=== PATIENT | female | born 1985 | race Caucasian/White ===

== ENCOUNTER → 2017-09-27 | Outpatient (CLI) | payer BC ==
[~2017-09-27] MED LIST: ACHD5005 PO; FRS325T PO; IBP600T1 PO; MULT-608 PO; PNV1TABL67 PO; TRI SPRINTEC PO
== END ==
LOC: LAB 22:41
PROVIDERS: ATTEND Obstetrics & Gynecology
DX: E28.2 Polycystic ovarian syndrome (principal)
CPT/HCPCS: 36415; 84144

== ENCOUNTER → 2017-10-25 | Outpatient (CLI) | payer BC | LOC: LAB 09:14 | PROVIDERS: ATTEND Obstetrics & Gynecology | DX: E28.2 Polycystic ovarian syndrome (principal) | CPT/HCPCS: 36415; 84144 ==

== ENCOUNTER → 2018-02-23 | Outpatient (CLI) | payer BC ==
--- NOTE | 2018-02-23 13:12 | Diagnostic Imaging Report ---
INDICATION: survey. TECHNIQUE: Multiple Real-time grayscale images were obtained over the gravid uterus. COMPARISON: None. FINDINGS: There is a single live fetus in variable presentation. The heart rate was recorded at 135 BPM. The placenta is anterior. The amniotic fluid volume is normal. The cervical length is 4.6 cm. The survey demonstrates the kidneys, bladder, and stomach to be unremarkable. The brain is unremarkable. There is a 3 vessel cord; however, the cord insertion was not well visualized. In addition, a four-chamber heart view is not well visualized. The spine is unremarkable. MEASUREMENTS: Biometrical measurements are as follows: Biparietal 4.86 cm, age 20 weeks 5 days. Head circumference 17.98 cm, age 20 weeks 3 days. Abdominal circumference 15.93 cm, age 21 weeks 1 days. Femur length 3.48 cm, age 21 weeks 0 days. Sonographic estimate age: 20 weeks 6 days. Sonographic estimated date of delivery: 07/07/2018. Estimated Weight: 388 gm (+/- 57 gm). LMP percentile: 87%. heart rate: 135 beats per minute. number: 1 of 1. IMPRESSION: Single live IUP at 20 weeks 6 days gestational age with an estimated date of confinement sonographically of 07/07/2018. No complicating features are seen. The survey is unremarkable although the cord insertion and four-chamber heart view were not well visualized on today's study and followup could be performed. Dictated by: Dictated on workstation # [id number]
== END ==
LOC: RAD 10:37
PROVIDERS: ATTEND Obstetrics & Gynecology
DX: Z36.89 Encounter for other specified antenatal screening (principal); Z3A.20 20 weeks gestation of pregnancy
CPT/HCPCS: 76805

== ENCOUNTER 2018-06-17 12:43 | Outpatient (CLI) | payer BC ==
[~2018-06-17] VITALS: Ht 162.6 cm; Wt 125.6 kg
[2018-06-17 12:50] VITALS: BP 144/95
[2018-06-17 13:10] VITALS: BP 144/100
[2018-06-17 13:55] LABS: BASOPHILS % (AUTO) 0 % (0-10); EOSINOPHILS # (AUTO) 0.1 10^3/uL (0.0-0.3); EOSINOPHILS % (AUTO) 1 % (0-10); HEMATOCRIT 34 % (35-52); HEMOGLOBIN 11.6 G/DL (11.5-16.0); LYMPHOCYTES # (AUTO) 1.8 X 10^3 (1.0-4.0); LYMPHOCYTES % (AUTO) 16 % (12-44); MEAN CORPUSCULAR HEMOGLOBIN 29 PG (25-34); MEAN CORPUSCULAR HGB CONC 34 G/DL (32-36); MEAN CORPUSCULAR VOLUME 86 FL (80-99); MEAN PLATELET VOLUME 10.8 FL (7.4-10.4); MONOCYTES # (AUTO) 0.8 X 10^3 (0.0-1.0); MONOCYTES % (AUTO) 7 % (0-12); NEUTROPHILS # (AUTO) 8.8 X 10^3 (1.8-7.8); NEUTROPHILS % (AUTO) 77 % (42-75); PLATELET COUNT 269 10^3/uL (130-400); RED BLOOD COUNT 3.99 10^6/uL (4.35-5.85); RED CELL DISTRIBUTION WIDTH 15.2 % (10.0-14.5); WHITE BLOOD COUNT 11.5 10^3/uL (4.3-11.0)
[2018-06-17 14:00] VITALS: BP 136/87
[2018-06-17 14:10] LABS: ALANINE AMINOTRANSFERASE 15 U/L (0-55); ALBUMIN 3.3 GM/DL (3.2-4.5); ALKALINE PHOSPHATASE 127 U/L (40-136); BILIRUBIN,TOTAL 0.3 MG/DL (0.1-1.0); BUN/CREATININE RATIO 13; CALCIUM 9.6 MG/DL (8.5-10.1); CARBON DIOXIDE 19 MMOL/L (21-32); CHLORIDE 107 MMOL/L (98-107); CREATININE SERUM 0.53 MG/DL (0.60-1.30); GFR ESTIMATED > 60; GLUCOSE 110 MG/DL (70-105); POTASSIUM 3.8 MMOL/L (3.6-5.0); SODIUM 136 MMOL/L (135-145); TOTAL PROTEIN 6.3 GM/DL (6.4-8.2); URIC ACID 4.6 MG/DL (2.6-7.2)
[2018-06-17] MEDS ORDERED: LEVO75TA PO (14:40)
[2018-06-17] MEDS ORDERED: METF-399 PO (14:40)
== END 2018-06-17 14:50 | disposition home or self-care (01) ==
LOC: LDRP 12:43 → WSo 12:43
PROVIDERS: ATTEND Obstetrics & Gynecology
DX: O47.03 False labor before 37 completed weeks of gestation, third trimester (principal); Z3A.36 36 weeks gestation of pregnancy
CPT/HCPCS: 36415; 80053; 82570; 83615; 84156; 84550; 85025; 99213

== ENCOUNTER 2018-06-22 20:20 | Inpatient (IN) | payer BC ==
[~2018-06-22] VITALS: Ht 162.6 cm; Wt 127.5 kg
[2018-06-22] VITALS (8 sets, daily range): BP systolic 124–146; BP diastolic 73–89
[~2018-06-22 20:20] MED LIST changes: +LEVO75TA PO; +METF-399 PO
[2018-06-22] MEDS ORDERED: LACTATED RINGERS 1,000 ML IV SCH (20:44)
[2018-06-22] MEDS ORDERED: MISOPROSTOL 100 MCG (CYTOTEC) TAB PO ONE (20:45)
[2018-06-22] MEDS ORDERED: TERBUTALINE INJ 1 MG/ML (BRETHINE) AMP SC PRN (20:45)
[2018-06-22] MEDS ORDERED: MINERAL OIL CONCENTRATE 99.9% 15 ML UDC TOP PRN (20:45)
[2018-06-22] MEDS ORDERED: MISOPROSTOL 100 MCG (CYTOTEC) TAB ONE (20:59)
[2018-06-22] MEDS ORDERED: D5 LR IV SOLUTION 1,000 ML IV ONE (20:59)
[2018-06-22] MEDS: D5 LR IV SOLUTION 1,000 ML IV SCH (21:18)
[2018-06-22 21:37] LABS: BASOPHILS % (AUTO) 0 % (0-10); EOSINOPHILS # (AUTO) 0.1 10^3/uL (0.0-0.3); EOSINOPHILS % (AUTO) 1 % (0-10); HEMATOCRIT 33 % (35-52); HEMOGLOBIN 11.1 G/DL (11.5-16.0); LYMPHOCYTES # (AUTO) 2.4 X 10^3 (1.0-4.0); LYMPHOCYTES % (AUTO) 20 % (12-44); MEAN CORPUSCULAR HEMOGLOBIN 29 PG (25-34); MEAN CORPUSCULAR HGB CONC 34 G/DL (32-36); MEAN CORPUSCULAR VOLUME 86 FL (80-99); MEAN PLATELET VOLUME 10.7 FL (7.4-10.4); MONOCYTES % (AUTO) 9 % (0-12); NEUTROPHILS # (AUTO) 8.3 X 10^3 (1.8-7.8); NEUTROPHILS % (AUTO) 70 % (42-75); PLATELET COUNT 283 10^3/uL (130-400); RED BLOOD COUNT 3.81 10^6/uL (4.35-5.85); RED CELL DISTRIBUTION WIDTH 15.1 % (10.0-14.5); WHITE BLOOD COUNT 11.9 10^3/uL (4.3-11.0)
[2018-06-22 21:37] LABS: BILIRUBIN,URINE NEGATIVE (NEGATIVE); CLARITY,URINE CLEAR; COLOR,URINE YELLOW; GLUCOSE, URINE (UA) 2+ (NEGATIVE); KETONES,URINE NEGATIVE (NEGATIVE); LEUKOCYTE ESTERASE ,URINE NEGATIVE (NEGATIVE); NITRITE,URINE NEGATIVE (NEGATIVE); PH,URINE 6 (5-9); PROTEIN,URINE 1+ (NEGATIVE); UROBILINOGEN,URINE NORMAL (NORMAL)
[2018-06-22 21:43] LABS: BACTERIA,URINE FEW /HPF; RBC,URINE 0-5 /HPF; SQUAMOUS EPITHELIAL CELL,UR >50 /HPF
[2018-06-22] MEDS ORDERED: CATHETER FLUSH 10 ML SYR IV SCH (22:00)
[2018-06-23] VITALS (71 sets, daily range): BP systolic 117–162; BP diastolic 64–98
[2018-06-23] MEDS: MISOPROSTOL 100 MCG (CYTOTEC) TAB PO SCH ×3 (00:58→10:34)
[2018-06-23] MEDS ORDERED: ZOLPIDEM 5 MG (AMBIEN) TAB PO ONE (01:00)
[2018-06-23] MEDS ORDERED: ZOLPIDEM 5 MG (AMBIEN) TAB ONE (01:00)
[2018-06-23] MEDS: D5 LR IV SOLUTION 1,000 ML IV SCH ×2 (06:29→14:54)
[2018-06-23] MEDS ORDERED: ONDANSETRON 4 MG/2 ML (SDV) Z0FRAN ONE (09:52)
[2018-06-23] MEDS ORDERED: BUTORPHANOL INJ 2 MG/ML (STADOL) VIAL IV NR (11:15)
[2018-06-23] MEDS ORDERED: PROMETHAZINE INJ 25 MG/ML (PHENERGAN) AMP IVP NR (11:15)
[2018-06-23] MEDS ORDERED: LIDOCAINE PF 2% 5 ML (XYLOCAINE) VIAL ONE (11:42)
[2018-06-23] MEDS ORDERED: BUPIVACAINE 0.25% 30 ML (SENSORCAINE) VIAL ONE (11:42)
[2018-06-23] MEDS ORDERED: fentaNYL INJECTION 100 MCG/2 ML AMP ONE (11:42)
[2018-06-23] MEDS ORDERED: SUFENTA 0.6MCG/ML BUPIVA 0.125 100 ML ONE (11:42)
[2018-06-23] MEDS ORDERED: LACTATED RINGERS 1,000 ML IV ONE (12:32)
[2018-06-23] MEDS ORDERED: NALOXONE 0.4 MG/ML 1 ML (NARCAN) VIAL IV PRN (12:45)
[2018-06-23] MEDS ORDERED: ONDANSETRON 4 MG/2 ML (SDV) Z0FRAN IV PRN (12:45)
[2018-06-23] MEDS ORDERED: diphenhydrAMINE 50 MG/ML INJ (BENADRYL) IV PRN (12:45)
[2018-06-23] MEDS ORDERED: CATHETER FLUSH 10 ML SYR IV PRN (12:45)
[2018-06-23] MEDS ORDERED: OXYTOCIN/NORMAL SALINE 500 ML IV SCH ×2 (14:50→20:45)
[2018-06-23] MEDS: EPIDURAL (SUFENTA 0.6MCG/ML BUPIVA 0.125%) 100 ML BAG EPI SCH ×2 (14:54→19:29)
[2018-06-23] MEDS ORDERED: LIDOCAINE 1% INJ 20 ML 20 ML VIAL ONE (19:55)
[2018-06-23] MEDS ORDERED: MISOPROSTOL 200 MCG (CYTOTEC) TABLET ONE (20:28)
[2018-06-23] MEDS ORDERED: MEASLES,MUMPS,RUBELLA 1 EA INJ SQ ONE (20:45)
[2018-06-23] MEDS ORDERED: DIBUCAINE (NUPERCAINAL) 1% OINT 30 GM TOP PRN (20:45)
[2018-06-23] MEDS ORDERED: TETANUS,DIPTH,PERTUSS P/F (BOOSTRIX) 0.5 ML VIAL IM ONE (20:45)
[2018-06-23] MEDS ORDERED: ACETAMINOPHEN 500 MG TAB (TYLENOL) PO PRN (20:45)
[2018-06-23] MEDS ORDERED: WITCH HAZEL(TUCKS) 40 EA JAR TOP PRN (20:45)
[2018-06-23] MEDS ORDERED: BENZOCAINE/MENTHOL (DERMOPLAST) 56 ML CAN TP PRN (20:45)
--- NOTE | 2018-06-23 20:50 | OB Labor & Delivery Record ---
Vag Delivery Note Vag Delivery Note Date of Delivery: 06/23/18 Preoperative Diagnosis: Elisha Cr is a (32 /Para 2/1 ,Gestational Age 37 2/7 weeks, gestational hypertension, induction of labor Postoperative Diagnosis: Same Surgeon: FLORENTIN CLINTON Anesthesia: epidural Delivery Type: vaginal delivery Findings: Viable male infant, apgars 8/8, weight 7#8oz Lacerations: Intact placenta with 3 vessel cord. No body cord or shoulder dystocia. there was a nuchal cord that was delivered through. Cytotec 800 mcg placed for hemorrhage prophylaxis Estimated Blood Loss: 150 ml Complications: None Condition: Stable Description of Procedure: The patient is a 32 /Para 2/1 ,Gestational Age 37 2/7 weeks, gestational hypertension, induction of labor. She was admitted and informed consent was obtained. Her labor course was remarkable for misoprostol x 4 doses , AROM and pitocin. She progressed to complete dilatation and began to push. She was then set up for delivery. The 's head was delivered atraumatically in the BELIA position. The shoulders and remainder of the 's body were then delivered without difficulty. Upon delivery, the head was held below the level of the perineum and the mouth and nares were bulb suctioned. The cord was doubly clamped and cut and the was handed off to the pediatric staff. An intact placenta with 3-vessel cord delivered via Girish and there was found to be minimal bleeding.~ Vigorous fundal massage was performed and the fundus was found to be firm. IV oxytocin was given. Examination of the vagina and perineum revealed a 1st laceration repaired in the usual fashion with 3-0 vicryl suture. Following the repair, sponge, instrument and needle counts were correct. Mom and baby were both in stable condition in the labor suite. Vitals - Labs Vital Signs - I&O Vital Signs Date Time Temp Pulse Resp B/P (MAP) Pulse Ox O2 Delivery O2 Flow Rate FiO2 06/23/18 19:00 87 133/67 (89) Room Air 06/23/18 18:45 92 125/68 (87) Room Air 06/23/18 18:30 82 127/70 (89) Room Air 06/23/18 18:15 100 122/77 (92) Room Air 06/23/18 18:00 99.5 92 122/72 (89) Room Air 06/23/18 17:45 90 18 123/81 (95) Room Air 06/23/18 17:30 95 132/91 (105) Room Air 06/23/18 17:15 101 133/84 (100) Room Air 06/23/18 17:00 90 138/87 (104) Room Air 06/23/18 16:45 93 127/86 (100) Room Air 06/23/18 16:30 89 120/77 (91) Room Air 06/23/18 16:15 98.5 84 18 132/72 (92) Room Air 06/23/18 16:00 96 142/70 (94) Room Air 06/23/18 15:45 96 124/83 (97) Room Air 06/23/18 15:30 85 122/81 (95) Room Air 06/23/18 15:15 86 117/77 (90) Room Air 06/23/18 15:00 97.7 82 18 122/78 (93) Room Air 06/23/18 14:45 110 125/92 (103) Room Air 06/23/18 14:30 87 134/78 (96) 99 Room Air 06/23/18 14:15 85 127/74 (91) 100 Room Air 06/23/18 14:00 86 130/73 (92) 100 Room Air 06/23/18 13:45 82 18 138/74 (95) 99 Room Air 06/23/18 13:30 97.4 82 134/81 (98) 100 Room Air 06/23/18 13:15 86 144/76 (98) 100 Room Air 06/23/18 13:00 86 140/76 (97) 99 Room Air 06/23/18 12:55 78 129/73 (91) 99 Room Air 06/23/18 12:50 82 145/80 (101) 99 Room Air 06/23/18 12:45 111 129/79 (96) 97 Room Air 06/23/18 12:40 84 18 127/74 (91) 97 Room Air 06/23/18 12:35 92 131/75 (93) 96 Room Air 06/23/18 12:32 88 131/76 (94) 96 Room Air 06/23/18 12:30 90 129/76 (93) 95 Room Air 06/23/18 12:29 88 141/77 (98) 96 Room Air 06/23/18 12:26 88 127/74 (91) 96 Room Air 06/23/18 12:23 89 136/76 (96) 97 Room Air 06/23/18 12:20 86 135/80 (98) 97 Room Air 06/23/18 12:15 98.0 95 18 148/83 (104) 99 Room Air 06/23/18 12:00 103 143/93 (110) 06/23/18 11:00 96 136/73 (94) 06/23/18 10:00 100 122/79 (93) 06/23/18 09:00 82 139/68 (91) 06/23/18 08:00 97.0 92 18 125/89 (101) 06/23/18 07:15 82 18 139/86 (103) 06/23/18 06:50 89 20 145/86 (105) 06/23/18 06:20 78 18 149/98 (115) 06/23/18 05:50 76 18 128/88 (101) 06/23/18 05:20 85 124/84 (97) 06/23/18 04:50 86 18 132/79 (96) 06/23/18 04:20 86 18 121/69 (86) 06/23/18 04:00 85 18 122/72 (89) 06/23/18 03:50 85 18 122/72 (89) 06/23/18 03:20 82 18 135/64 (87) 06/23/18 02:50 84 18 122/65 (84) 06/23/18 02:20 81 18 137/77 (97) 06/23/18 01:50 97.4 88 20 132/72 (92) 06/23/18 01:20 93 20 137/82 (100) 06/23/18 00:50 104 20 134/84 (101) 06/23/18 00:20 100 20 139/95 (110) 06/22/18 23:50 103 20 127/74 (91) 06/22/18 23:20 94 18 132/79 (96) 06/22/18 22:50 93 18 138/89 (105) 06/22/18 22:20 96 18 146/78 (100) 06/22/18 21:50 94 18 146/86 (106) 06/22/18 21:20 100 18 124/83 (97) 06/22/18 20:50 100 18 125/80 (95) I & O 06/23/18 07:00 Intake Total 70 ml Balance 70 ml Labs Laboratory Tests 06/22/18 21:00: White Blood Count 11.9H, Red Blood Count 3.81L, Hemoglobin 11.1L, Hematocrit 33L , Mean Corpuscular Volume 86, Mean Corpuscular Hemoglobin 29, Mean Corpuscular Hemoglobin Concent 34, Red Cell Distribution Width 15.1H, Platelet Count 283, Mean Platelet Volume 10.7H, Neutrophils (%) (Auto) 70, Lymphocytes (%) (Auto) 20 , Monocytes (%) (Auto) 9, Eosinophils (%) (Auto) 1, Basophils (%) (Auto) 0, Neutrophils # (Auto) 8.3H, Lymphocytes # (Auto) 2.4, Monocytes # (Auto) 1.0, Eosinophils # (Auto) 0.1, Basophils # (Auto) 0.0 Microbiology 06/22/18 Urine Culture - Preliminary, Resulted Culture In Progress FLORENTIN CLINTON DO Jun 23, 2018 20:50
[2018-06-23] MEDS ORDERED: MUPIROCIN 2% OINT 22 GM (BACTROBAN) TUBE TOP SCH (21:30)
[2018-06-23] MEDS: IBUPROFEN 600 MG (MOTRIN) TAB PO SCH (21:41)
[2018-06-23] MEDS ORDERED: CATHETER FLUSH 10 ML SYR IV SCH (22:00)
[2018-06-23] MEDS ORDERED: BUTORPHANOL INJ 2 MG/ML (STADOL) VIAL ONE (22:13)
[2018-06-23] MEDS ORDERED: BUTORPHANOL INJ 2 MG/ML (STADOL) VIAL IV ONE (22:15)
[2018-06-23] MEDS ORDERED: morphine INJ 10 MG/ML 1ML (SYR OR VIAL) ONE (22:37)
[2018-06-23] MEDS ORDERED: morphine INJ 10 MG/ML 1ML (SYR OR VIAL) IVP ONE (22:45)
[2018-06-23 23:55] LABS: HEMOGLOBIN 12.4 G/DL (11.5-16.0)
[2018-06-24] MEDS ORDERED: MISOPROSTOL 200 MCG (CYTOTEC) TABLET PR ONE
[2018-06-24] MEDS ORDERED: oxyCODONE/APAP 5/325MG (PERCOCET 5) TABLET ONE (01:09)
[2018-06-24 01:20] VITALS: BP 137/81
[2018-06-24 05:00] VITALS: BP 127/86
[2018-06-24] MEDS: IBUPROFEN 600 MG (MOTRIN) TAB PO SCH ×3 (05:31→16:50)
[2018-06-24 06:39] LABS: BASOPHILS % (AUTO) 0 % (0-10); EOSINOPHILS % (AUTO) 0 % (0-10); HEMATOCRIT 32 % (35-52); HEMOGLOBIN 10.7 G/DL (11.5-16.0); LYMPHOCYTES # (AUTO) 1.6 X 10^3 (1.0-4.0); LYMPHOCYTES % (AUTO) 8 % (12-44); MEAN CORPUSCULAR HEMOGLOBIN 29 PG (25-34); MEAN CORPUSCULAR HGB CONC 34 G/DL (32-36); MEAN CORPUSCULAR VOLUME 87 FL (80-99); MEAN PLATELET VOLUME 10.7 FL (7.4-10.4); MONOCYTES # (AUTO) 1.5 X 10^3 (0.0-1.0); MONOCYTES % (AUTO) 8 % (0-12); NEUTROPHILS # (AUTO) 16.3 X 10^3 (1.8-7.8); NEUTROPHILS % (AUTO) 84 % (42-75); PLATELET COUNT 258 10^3/uL (130-400); RED BLOOD COUNT 3.63 10^6/uL (4.35-5.85); RED CELL DISTRIBUTION WIDTH 15.3 % (10.0-14.5); WHITE BLOOD COUNT 19.4 10^3/uL (4.3-11.0)
[2018-06-24 09:20] VITALS: BP 128/72
[2018-06-24] MEDS: PRENATAL VITAMIN 1 EA TAB PO SCH (09:20)
[2018-06-24] MEDS: DOCUSATE SODIUM 100 MG (COLACE) CAP PO SCH ×2 (09:20→22:26)
[2018-06-24] MEDS: FERROUS SULF 325 MG (IRON) TAB PO SCH (09:20)
--- NOTE | 2018-06-24 10:44 | Anesthesia-Regional Post-Op ---
Regional Patient Condition Mental Status: Alert, Oriented x3 Circulation: Same as Pre-Op Headache: Absent Sensation: Full Recovery Motor Block: Absent Post Op Complications Complications None Follow Up Care/Instructions Patient Instructions None needed. Anesthesia/Patient Condition Patient is doing well, no complaints, stable vital signs, no apparent adverse anesthesia problems. No complications reported per nursing. VICKI LIZAMA CRNA Jun 24, 2018 10:44
[2018-06-24 14:32] LABS: BASOPHILS % (AUTO) 0 % (0-10); EOSINOPHILS # (AUTO) 0.1 10^3/uL (0.0-0.3); EOSINOPHILS % (AUTO) 0 % (0-10); HEMATOCRIT 29 % (35-52); HEMOGLOBIN 9.7 G/DL (11.5-16.0); LYMPHOCYTES # (AUTO) 2.1 X 10^3 (1.0-4.0); LYMPHOCYTES % (AUTO) 12 % (12-44); MEAN CORPUSCULAR HEMOGLOBIN 29 PG (25-34); MEAN CORPUSCULAR HGB CONC 33 G/DL (32-36); MEAN CORPUSCULAR VOLUME 88 FL (80-99); MEAN PLATELET VOLUME 10.5 FL (7.4-10.4); MONOCYTES # (AUTO) 1.2 X 10^3 (0.0-1.0); MONOCYTES % (AUTO) 7 % (0-12); NEUTROPHILS # (AUTO) 14.2 X 10^3 (1.8-7.8); NEUTROPHILS % (AUTO) 81 % (42-75); PLATELET COUNT 290 10^3/uL (130-400); RED BLOOD COUNT 3.33 10^6/uL (4.35-5.85); RED CELL DISTRIBUTION WIDTH 15.3 % (10.0-14.5); WHITE BLOOD COUNT 17.6 10^3/uL (4.3-11.0)
[2018-06-24] MEDS ORDERED: LORazepam 0.5 MG (ATIVAN) TABLET PO ONE (14:45)
--- NOTE | 2018-06-24 14:49 | Postpartum Progress Note ---
Note Note seen and examined while in the shower at 0840 Day # 1 s/p . Has previous history of post hemorrhage. She was given misoprostol prophylactically due to this and has not had excessive bleeding. However, she had severe pain in the vagina starting last night. This was not improved with pain medications, Motrin, Ice packs. She now has obvious vaginal wall hematoma. And this is causing severe pain. States she was unable to void after delivery but had straight cath this morning and had 750 ml out. Since this has been able to void but only while in the shower. I examined her while she was standing in the shower and she has bruising and swelling of the left labia consistent with a hematoma. This is very tender but appears stable at this point. Her hemoglobin dropped appropriately after delivery and hematoma seems stable 1430 patient was examined after lunch. She is lying in bed and pain is getting worse. She is only able to void in the shower. VAgina is examined and hematoma has extended from the pubic bone in the left vagina along the left vaginal wall to the ischiorectal fossa on the left. CT of the pelvis is ordered. 1615 The hematoma is 75s06m6 cm and there does not appear to be active bleeding. Plan was made to proceed with I&D in the morning as she ate lunch at 1300. She is currently a little more comfortable with pain medication and Ativan. 1800 - the pain is increasing. She is unable to move comfortably. Has had ice packs on the vulva all day without improvement. Plan to proceed with I&D tonight at 2100 as she ate lunch. Will plan I&D of the left vaginal wall hematoma. Subjective: bottle feeding and pumping. Objective: Vital Signs 06/24/18 14:56 Temp 97.9 Pulse 91 Resp 20 B/P (MAP) 122/84 (97) Pulse Ox 99 O2 Delivery Room Air Laboratory Tests Test 06/23/18 23:47 06/24/18 06:19 06/24/18 14:25 Range/Units Hemoglobin 12.4 10.7 L 9.7 L 11.5-16.0 G/DL Hematocrit 37 32 L 29 L 35-52 % White Blood Count 19.4 H 17.6 H 4.3-11.0 10^3/uL Red Blood Count 3.63 L 3.33 L 4.35-5.85 10^6/uL Mean Corpuscular Volume 87 88 80-99 FL Mean Corpuscular Hemoglobin 29 29 25-34 PG Mean Corpuscular Hemoglobin Concent 34 33 32-36 G/DL Red Cell Distribution Width 15.3 H 15.3 H 10.0-14.5 % Platelet Count 258 290 130-400 10^3/uL Mean Platelet Volume 10.7 H 10.5 H 7.4-10.4 FL Neutrophils (%) (Auto) 84 H 81 H 42-75 % Lymphocytes (%) (Auto) 8 L 12 12-44 % Monocytes (%) (Auto) 8 7 0-12 % Eosinophils (%) (Auto) 0 0 0-10 % Basophils (%) (Auto) 0 0 0-10 % Neutrophils # (Auto) 16.3 H 14.2 H 1.8-7.8 X 10^3 Lymphocytes # (Auto) 1.6 2.1 1.0-4.0 X 10^3 Monocytes # (Auto) 1.5 H 1.2 H 0.0-1.0 X 10^3 Eosinophils # (Auto) 0.0 0.1 0.0-0.3 10^3/uL Basophils # (Auto) 0.0 0.0 0.0-0.1 10^3/uL Physical Exam: General - Alert and oriented, no apparent distress Abdomen - Soft, appropriately tender to palpation, non-distended, fundus firm at umbilicus Extremities - no edema, negative Ade's bilaterally Assessment: 1. post- day # 1, status post spontaneous vaginal delivery. 2. Gestational hypertension 3. vaginal wall hematoma. 4. Acute blood loss anemia due to #3. Plan: Routine care. Encourage breast feeding. Encourage ambulation. Ferrous sulfate supplementation. Plan I&D as above. Risks include bleeding, infection, injury to bowel, bladder and ureter. Will T& C x 2 units and give prophylactic antibiotics. NPO with IV restarted. Consents signed. Vitals - Labs Vital Signs - I&O Vital Signs Date Time Temp Pulse Resp B/P (MAP) Pulse Ox O2 Delivery O2 Flow Rate FiO2 06/24/18 09:20 97.0 100 18 128/72 (90) 98 Room Air 06/24/18 05:00 97.4 79 18 127/86 (100) 06/24/18 01:20 96.8 81 137/81 (99) Room Air 06/23/18 22:55 97.8 93 134/69 (90) Room Air 06/23/18 21:34 98 146/67 (93) Room Air 06/23/18 21:20 100.4 89 145/70 (95) Room Air 06/23/18 21:05 93 161/83 (109) Room Air 06/23/18 20:50 98.9 98 155/86 (109) Room Air 06/23/18 20:35 95 152/77 (102) Room Air 06/23/18 20:21 115 149/84 (105) Room Air 06/23/18 20:05 105 155/82 (106) Room Air 06/23/18 20:00 96 142/94 (110) Room Air 06/23/18 19:55 99.0 107 133/82 (99) Room Air 06/23/18 19:45 100 162/93 (116) Room Air 06/23/18 19:30 116 140/87 (104) Room Air 06/23/18 19:15 97 124/79 (94) Room Air 06/23/18 19:00 87 133/67 (89) Room Air 06/23/18 18:45 92 125/68 (87) Room Air 06/23/18 18:30 82 127/70 (89) Room Air 06/23/18 18:15 100 122/77 (92) Room Air 06/23/18 18:00 99.5 92 122/72 (89) Room Air 06/23/18 17:45 90 18 123/81 (95) Room Air 06/23/18 17:30 95 132/91 (105) Room Air 06/23/18 17:15 101 133/84 (100) Room Air 06/23/18 17:00 90 138/87 (104) Room Air 06/23/18 16:45 93 127/86 (100) Room Air 06/23/18 16:30 89 120/77 (91) Room Air 06/23/18 16:15 98.5 84 18 132/72 (92) Room Air 06/23/18 16:00 96 142/70 (94) Room Air 06/23/18 15:45 96 124/83 (97) Room Air 06/23/18 15:30 85 122/81 (95) Room Air 06/23/18 15:15 86 117/77 (90) Room Air 06/23/18 15:00 97.7 82 18 122/78 (93) Room Air 06/23/18 14:45 110 125/92 (103) Room Air I & O 06/24/18 07:00 Intake Total 3350 ml Output Total 700 ml Balance 2650 ml Labs Laboratory Tests 06/23/18 23:47: Hemoglobin 12.4, Hematocrit 37 06/24/18 06:19: Hemoglobin 10.7L, Hematocrit 32L, White Blood Count 19.4H, Red Blood Count 3.63L , Mean Corpuscular Volume 87, Mean Corpuscular Hemoglobin 29, Mean Corpuscular Hemoglobin Concent 34, Red Cell Distribution Width 15.3H, Platelet Count 258, Mean Platelet Volume 10.7H, Neutrophils (%) (Auto) 84H, Lymphocytes (%) (Auto) 8L, Monocytes (%) (Auto) 8, Eosinophils (%) (Auto) 0, Basophils (%) (Auto) 0, Neutrophils # (Auto) 16.3H, Lymphocytes # (Auto) 1.6, Monocytes # (Auto) 1.5H, Eosinophils # (Auto) 0.0, Basophils # (Auto) 0.0 06/24/18 14:25: Hemoglobin 9.7L, Hematocrit 29L, White Blood Count 17.6H, Red Blood Count 3.33L , Mean Corpuscular Volume 88, Mean Corpuscular Hemoglobin 29, Mean Corpuscular Hemoglobin Concent 33, Red Cell Distribution Width 15.3H, Platelet Count 290, Mean Platelet Volume 10.5H, Neutrophils (%) (Auto) 81H, Lymphocytes (%) (Auto) 12, Monocytes (%) (Auto) 7, Eosinophils (%) (Auto) 0, Basophils (%) (Auto) 0, Neutrophils # (Auto) 14.2H, Lymphocytes # (Auto) 2.1, Monocytes # (Auto) 1.2H, Eosinophils # (Auto) 0.1, Basophils # (Auto) 0.0 Microbiology 06/22/18 Urine Culture - Final, Complete See Report FLORENTIN CLINTON DO Jun 24, 2018 14:49
[2018-06-24 14:56] VITALS: BP 122/84
[2018-06-24] MEDS: oxyCODONE/APAP 5/325MG (PERCOCET 5) TABLET PO PRN (14:56)
[2018-06-24] MEDS ORDERED: IOHEXOL 350 MG/ML 100 ML (OMNIPAQUE 350) VIAL IV ONE (15:00)
[2018-06-24] MEDS ORDERED: NS 250 ML (IVPB) BAG IV ONE (15:00)
[2018-06-24] MEDS ORDERED: RECEIVED CONTRAST (Hold Metformin) IV SCH (15:00)
[2018-06-24] MEDS ORDERED: LORazepam 0.5 MG (ATIVAN) TABLET ONE (15:05)
--- NOTE | 2018-06-24 16:05 | Diagnostic Imaging Report ---
PROCEDURE: CT pelvis with contrast. TECHNIQUE: Oral and intravenous contrast were administered with pelvic CT performed. INDICATION: Status post vaginal delivery yesterday with severe pelvic pain and possible developing pelvic hematoma. FINDINGS: The uterus is post gravid. There is some high density within the endometrial canal consistent with blood products. There appears to be some high density in the vaginal canal consistent with blood products. There is a hematoma primarily located along the left vaginal wall and left ischiorectal fossa measuring 9.2 cm AP x 6.7 cm transverse x 11.0 cm cephalocaudal. No active extravasation of contrast is seen to suggest active bleeding at this time. There is a small amount of free fluid adjacent to the uterus. Bladder is unremarkable. Bowel loops are unremarkable. IMPRESSION: Pelvic hematoma along the left aspect of the vagina and left ischiorectal fossa, without evidence of active extravasation. There are blood products within the uterus and vaginal canal as well. Results were discussed with Dr. Anderson prior to this dictation. Dictated by: Dictated on workstation # [id number]
[2018-06-24] MEDS ORDERED: BUTORPHANOL INJ 2 MG/ML (STADOL) VIAL IV PRN (17:45)
[2018-06-24] MEDS ORDERED: metroNIDAZOLE 500MG/100ML IVPB 100 ML ONE (18:51)
[2018-06-24] MEDS ORDERED: ceFAZolin 1,000 MG/10 ML (ANCEF) VIAL ONE (19:37)
[2018-06-24] MEDS ORDERED: NS (IVPB) 50 ML ONE (19:37)
[2018-06-24] MEDS ORDERED: MIDAZOLAM 2 MG/2 ML (VERSED) VIAL ONE (19:46)
[2018-06-24] MEDS ORDERED: fentaNYL INJECTION 100 MCG/2 ML AMP ONE ×2 (19:46→21:23)
[2018-06-24] MEDS ORDERED: SUCCINYLCHOLINE INJ 100 MG/5 ML SYR ONE (20:04)
[2018-06-24] MEDS ORDERED: proPOfol 200 MG/20 ML (DIPRIVAN) VIAL IV ONE ×2 (20:04→21:52)
[2018-06-24] MEDS ORDERED: PROPOFOL INJECTION 50 ML IV ONE ×2 (20:04→21:29)
[2018-06-24] MEDS ORDERED: DEXAMETHASONE 10 MG/ML (DECADRON) 1 ML VIAL ONE (20:04)
[2018-06-24] MEDS ORDERED: LIDOCAINE PF 2% 5 ML (XYLOCAINE) VIAL ONE (20:04)
[2018-06-24] MEDS ORDERED: ONDANSETRON 4 MG/2 ML (SDV) Z0FRAN ONE ×2 (20:04→21:30)
[2018-06-24] MEDS ORDERED: FAMOTIDINE 20MG/2ML IV (PEPCID) ONE (20:29)
[2018-06-24] MEDS ORDERED: BUPIVACAINE 0.5% 30 ML (SENSORCAINE) VIAL ONE (20:36)
[2018-06-24] MEDS ORDERED: LORazepam 0.5 MG (ATIVAN) TABLET PO NR (21:00)
[2018-06-24] MEDS ORDERED: morphine INJ 10 MG/ML 1ML (SYR OR VIAL) ONE (21:14)
[2018-06-24] MEDS ORDERED: MEPERIDINE (DEMEROL) INJ 50 MG/ML ONE (21:14)
[2018-06-24] MEDS ORDERED: PROMETHAZINE INJ 25 MG/ML (PHENERGAN) AMP ONE (21:14)
[2018-06-24] MEDS ORDERED: HYDROmorphone 2 MG/ML VIAL (DILAUDID) ONE (21:14)
[2018-06-24] MEDS ORDERED: LACTATED RINGERS 1,000 ML IV PRN (21:27)
[2018-06-24] MEDS ORDERED: morphine INJ 10 MG/ML 1ML (SYR OR VIAL) IVP ONE (21:30)
[2018-06-24] MEDS ORDERED: PROMETHAZINE INJ 25 MG/ML (PHENERGAN) AMP IVP ONE (21:30)
[2018-06-24] MEDS ORDERED: SEVOFLURANE (ULTANE) 15 ML INHAL SOLN ONE (21:30)
[2018-06-24] MEDS ORDERED: MEPERIDINE (DEMEROL) INJ 50 MG/ML IVP ONE (21:30)
[2018-06-24] MEDS ORDERED: KETOROLAC 30 MG/ML VIAL ONE (21:58)
--- NOTE | 2018-06-24 22:19 | Operative Report ---
Operative Report Date of Procedure/Surgery Jun 24, 2018 Surgeon (s) FLORENTIN CLINTON DO Supervisor Alteration Workroom (s): Lexa Saeed, MS III Post-Operative Diagnosis vaginal wall hematoma Procedure Performed Incision and drainage of hematoma Description of Procedure Anesthesia Type: General Estimated blood loss (mL): 700 Specimen(s) collected/removed none Packing: vaginal Findings of the Procedure 10 x 7 x 15 cm left vaginal wall extending into the left ischiorectal fossa evidence of spontaneous drainage Allergies and Home Medications Allergies Coded Allergies: minocycline (Verified Allergy, Unknown, 06/22/18) Home Medications Ferrous Sulfate 325 Mg Tab, 325 MG PO DAILY@08 PRN for bid Prescribed by: FLORENTIN CLINTON on 09/11/14 0943 Levothyroxine Sodium 75 Mcg Tablet, MCG PO DAILY, (Reported) Pnv with Ca,No.72/Iron/FA 1 Ea Tab, 1 EA PO DAILY@0700 Prescribed by: FLORENTIN CLINTON on 09/11/14 0943 Patient Home Medication List Home Medication List Reviewed: Yes FLORENTIN CLINTON DO Jun 24, 2018 22:18
[2018-06-24] MEDS ORDERED: HYDROmorphone 2 MG/ML VIAL (DILAUDID) IV ONE (22:30)
[2018-06-24] MEDS ORDERED: LACTATED RINGERS 1,000 ML IV SCH (23:00)
[2018-06-24 23:45] VITALS: BP 118/88
[2018-06-25] MEDS: D5 LR IV SOLUTION 1,000 ML IV SCH (01:58)
[2018-06-25] MEDS: oxyCODONE/APAP 5/325MG (PERCOCET 5) TABLET PO PRN ×2 (02:37→14:05)
[2018-06-25] MEDS: IBUPROFEN 600 MG (MOTRIN) TAB PO SCH ×2 (04:33→11:40)
[2018-06-25 04:34] VITALS: BP 129/91
[2018-06-25 05:52] LABS: BASOPHILS % (AUTO) 0 % (0-10); EOSINOPHILS % (AUTO) 0 % (0-10); HEMATOCRIT 26 % (35-52); HEMOGLOBIN 8.3 G/DL (11.5-16.0); LYMPHOCYTES # (AUTO) 1.7 X 10^3 (1.0-4.0); LYMPHOCYTES % (AUTO) 11 % (12-44); MEAN CORPUSCULAR HEMOGLOBIN 29 PG (25-34); MEAN CORPUSCULAR HGB CONC 33 G/DL (32-36); MEAN CORPUSCULAR VOLUME 89 FL (80-99); MEAN PLATELET VOLUME 10.3 FL (7.4-10.4); MONOCYTES # (AUTO) 0.9 X 10^3 (0.0-1.0); MONOCYTES % (AUTO) 6 % (0-12); NEUTROPHILS # (AUTO) 12.5 X 10^3 (1.8-7.8); NEUTROPHILS % (AUTO) 83 % (42-75); PLATELET COUNT 271 10^3/uL (130-400); RED BLOOD COUNT 2.88 10^6/uL (4.35-5.85); RED CELL DISTRIBUTION WIDTH 15.5 % (10.0-14.5); WHITE BLOOD COUNT 15.1 10^3/uL (4.3-11.0)
[2018-06-25] MEDS ORDERED: ceFAZolin INJECTION 1,000 MG in NS (IVPB) 50 ML IV NR (07:30)
[2018-06-25] MEDS ORDERED: metroNIDAZOLE 500MG/100ML IVPB 100 ML IV NR (07:30)
--- NOTE | 2018-06-25 08:29 | Postpartum Progress Note ---
Note Note Day # 2 s/p and POD #1 s/p I&D of vaginal wall hematoma. rich and vag pack removed this morning. Subjective: Patient is without complaints. Ambulating, voiding. Tolerating a regular diet without nausea or vomiting. Normal lochia. Pain is well controlled with oral pain medications. [] feeding. [] Objective: Laboratory Tests Test 06/24/18 14:25 06/25/18 05:30 Range/Units White Blood Count 17.6 H 15.1 H 4.3-11.0 10^3/uL Red Blood Count 3.33 L 2.88 L 4.35-5.85 10^6/uL Hemoglobin 9.7 L 8.3 L 11.5-16.0 G/DL Hematocrit 29 L 26 L 35-52 % Mean Corpuscular Volume 88 89 80-99 FL Mean Corpuscular Hemoglobin 29 29 25-34 PG Mean Corpuscular Hemoglobin Concent 33 33 32-36 G/DL Red Cell Distribution Width 15.3 H 15.5 H 10.0-14.5 % Platelet Count 290 271 130-400 10^3/uL Mean Platelet Volume 10.5 H 10.3 7.4-10.4 FL Neutrophils (%) (Auto) 81 H 83 H 42-75 % Lymphocytes (%) (Auto) 12 11 L 12-44 % Monocytes (%) (Auto) 7 6 0-12 % Eosinophils (%) (Auto) 0 0 0-10 % Basophils (%) (Auto) 0 0 0-10 % Neutrophils # (Auto) 14.2 H 12.5 H 1.8-7.8 X 10^3 Lymphocytes # (Auto) 2.1 1.7 1.0-4.0 X 10^3 Monocytes # (Auto) 1.2 H 0.9 0.0-1.0 X 10^3 Eosinophils # (Auto) 0.1 0.0 0.0-0.3 10^3/uL Basophils # (Auto) 0.0 0.0 0.0-0.1 10^3/uL 06/24/18 06/25/18 23:45 04:34 Temp 97.6 98.0 Pulse 95 89 Resp 18 18 B/P (MAP) 118/88 (98) 129/91 (104) Pulse Ox 95 97 O2 Delivery Room Air Room Air 06/25/18 00:00 Intake Total 150 ml Output Total 425 ml Balance -275 ml Physical Exam: General - Alert and oriented, no apparent distress Abdomen - Soft, appropriately tender to palpation, non-distended, fundus firm at umbilicus Extremities - 2+ edema, negative Ade's bilaterally Assessment: 1. post- day # 2, status post vaginal delivery. 2. gestational hypertension, blood pressures controlled without medications 3. POD #1 s/p I&D of left vaginal wall hematoma 4. acute blood loss anemia Plan: Routine care. Encourage breast feeding. Encourage ambulation. Ferrous sulfate supplementation. Plan for discharge [ today if pain controlled. Vitals - Labs Vital Signs - I&O Vital Signs Date Time Temp Pulse Resp B/P (MAP) Pulse Ox O2 Delivery O2 Flow Rate FiO2 06/25/18 04:34 98.0 89 18 129/91 (104) 97 Room Air 06/24/18 23:45 97.6 95 18 118/88 (98) 95 Room Air 06/24/18 20:00 Room Air 06/24/18 14:56 97.9 91 20 122/84 (97) 99 Room Air 06/24/18 09:20 97.0 100 18 128/72 (90) 98 Room Air I & O 06/25/18 07:00 Intake Total 750 ml Output Total 1225 ml Balance -475 ml Labs Laboratory Tests 06/24/18 14:25: White Blood Count 17.6H, Red Blood Count 3.33L, Hemoglobin 9.7L, Hematocrit 29L , Mean Corpuscular Volume 88, Mean Corpuscular Hemoglobin 29, Mean Corpuscular Hemoglobin Concent 33, Red Cell Distribution Width 15.3H, Platelet Count 290, Mean Platelet Volume 10.5H, Neutrophils (%) (Auto) 81H, Lymphocytes (%) (Auto) 12, Monocytes (%) (Auto) 7, Eosinophils (%) (Auto) 0, Basophils (%) (Auto) 0, Neutrophils # (Auto) 14.2H, Lymphocytes # (Auto) 2.1, Monocytes # (Auto) 1.2H, Eosinophils # (Auto) 0.1, Basophils # (Auto) 0.0 06/25/18 05:30: White Blood Count 15.1H, Red Blood Count 2.88L, Hemoglobin 8.3L, Hematocrit 26L , Mean Corpuscular Volume 89, Mean Corpuscular Hemoglobin 29, Mean Corpuscular Hemoglobin Concent 33, Red Cell Distribution Width 15.5H, Platelet Count 271, Mean Platelet Volume 10.3, Neutrophils (%) (Auto) 83H, Lymphocytes (%) (Auto) 11L, Monocytes (%) (Auto) 6, Eosinophils (%) (Auto) 0, Basophils (%) (Auto) 0, Neutrophils # (Auto) 12.5H, Lymphocytes # (Auto) 1.7, Monocytes # (Auto) 0.9, Eosinophils # (Auto) 0.0, Basophils # (Auto) 0.0 Microbiology 06/22/18 Urine Culture - Final, Complete See Report FLORENTIN CLINTON DO Jun 25, 2018 08:29
[2018-06-25] MEDS ORDERED: Benzocaine/Menthol TP (08:33)
[2018-06-25] MEDS ORDERED: OXYC1TAB87 PO (08:33)
[2018-06-25] MEDS ORDERED: IBUP-844 PO (08:33)
[2018-06-25] MEDS ORDERED: DOCU100C37 PO (08:33)
[2018-06-25] MEDS ORDERED: FERR325T18 PO (08:33)
[2018-06-25 08:45] VITALS: BP 138/91
[2018-06-25] MEDS: FERROUS SULF 325 MG (IRON) TAB PO SCH (08:58)
[2018-06-25] MEDS: PRENATAL VITAMIN 1 EA TAB PO SCH (08:58)
[2018-06-25] MEDS: DOCUSATE SODIUM 100 MG (COLACE) CAP PO SCH (08:58)
--- NOTE | 2018-06-25 12:45 | Discharge Inst-Women's Service ---
Discharge Inst-Women's Serv Depart Medication/Instructions New, Converted or Re-Newed RX: RX on Chart Instructions nothing in the vagina expect vaginal bleeding for 4-6 weeks but should be explosive ordnance specialist daily. Call if increase in pain or clots Final Diagnosis gestational hypertension induction vaginal delivery left vaginal wall hematoma acute blood loss anemia procedure - vaginal delivery, epidural I&D of left vaginal wall hematoma Consults/Follow Up Additional Follow Up: Yes (2 weeks with Justin and 6 weeks) Activity Activity: Activity as Tolerated Driving Instructions: You May Drive NO SMOKING: NO SMOKING Nothing Inside Vagina: No Douching, No [place], No Tampons Diet Discharge Diet: No Restrictions Symptoms to Report to : Swelling Increased, Bleeding Excessive, Pain Increased, Fever Over 101 Degrees F, Vaginal Bleeding Increase, Cramps in Feet or Legs, Vaginal Discharge Foul For Any Problems or Questions: Contact Your Physician Skin/Wound Care Bathing Instructions: FLORENTIN Ely DO Jun 25, 2018 12:45
--- NOTE | 2018-06-25 13:57 | Anesthesia-General Post-Op ---
General Patient Condition Mental Status/LOC: Same as Preop Cardiovascular: Satisfactory Nausea/Vomiting: Absent Respiratory: Satisfactory Pain: Controlled Complications: Absent Post Op Complications Complications None Follow Up Care/Instructions Patient Instructions None needed. Anesthesia/Patient Condition Patient Condition Patient is doing well, no complaints, stable vital signs, no apparent adverse anesthesia problems. No complications reported per nursing. DANIEL CONTRERAS CRNA Jun 25, 2018 13:57
== END 2018-06-25 14:40 | disposition home or self-care (01) | DRG 768 ==
LOC: LDRP 20:20
PROVIDERS: ADMIT Obstetrics & Gynecology; ATTEND Obstetrics & Gynecology
PROC: 3E0DXGC Introduction of Other Therapeutic Substance into Mouth and Pharynx, External Approach (ICD-10-PCS; 2018-06-22)
PROC: 10E0XZZ Delivery of Products of Conception, External Approach (ICD-10-PCS; principal; 2018-06-23)
PROC: 0HQ9XZZ Repair Perineum Skin, External Approach (ICD-10-PCS; 2018-06-23)
PROC: 0U9G7ZZ Drainage of Vagina, Via Natural or Artificial Opening (ICD-10-PCS; 2018-06-24)
DX: O13.4 Gestational [pregnancy-induced] hypertension without significant proteinuria, complicating childbirth (principal); O69.81X0 Labor and delivery complicated by cord around neck, without compression, not applicable or unspecified; O70.0 First degree perineal laceration during delivery; O71.7 Obstetric hematoma of pelvis; O90.81 Anemia of the puerperium; D62 Acute posthemorrhagic anemia; O99.284 Endocrine, nutritional and metabolic diseases complicating childbirth; E03.9 Hypothyroidism, unspecified; Z3A.37 37 weeks gestation of pregnancy; Z37.0 Single live birth
CPT/HCPCS: 36415; 72193; 81000; 85014; 85018; 85025; 86850; 86900; 86901; 87088; 90471

== ENCOUNTER → 2020-03-21 | Outpatient (CLI) | payer BC ==
[~2020-03-21] MED LIST changes: +Benzocaine/Menthol TP; +DOCU100C37 PO; +FERR325T18 PO; +IBUP-844 PO; +OXYC1TAB87 PO
--- NOTE | 2020-03-21 12:50 | Diagnostic Imaging Report ---
EXAMINATION: OB ultrasound. INDICATION: Uncertain dates. COMPARISON: There are no prior studies available for comparison. FINDINGS: There is a gestational sac within the uterus containing a single live fetus. heart motion was noted and a rate of 167 BPM was recorded. The crown/rump length suggests an estimated gestational age of 12 weeks 6 days +/- 1 week. There are no obvious abnormalities identified; however, a short-term (6-8 week) followup exam would be recommended for a more sensitive evaluation of the anatomy. The amniotic fluid volume is within normal limits. The placenta appears to be developing posteriorly. The cervix was not measured during the course of this exam. There are two cysts associated with the left ovary. The cysts measure 3.9 x 2.6 x 4 cm and 5.1 x 4 x 5 cm. These cysts have a generally benign appearance. There are a few subcentimeter follicles arising from the right ovary. There is no solid pelvic mass or free fluid collection noted. IMPRESSION: 1. There is a single live fetus of approximately 12 weeks 6 days gestation +/- 1 week. The EDC is 09/27/2020. 2. There are no obvious abnormalities identified. Recommendations as above. 3. There are two cysts associated with the left ovary. These cysts have a generally benign appearance. These cysts could also be further evaluated on the followup ultrasound exam. Dictated by: Dictated on workstation # [id number]
== END ==
LOC: RAD 09:29
PROVIDERS: ATTEND Obstetrics & Gynecology
DX: O34.81 Maternal care for other abnormalities of pelvic organs, first trimester (principal); N83.202 Unspecified ovarian cyst, left side; Z3A.12 12 weeks gestation of pregnancy
CPT/HCPCS: 76801; 76817

== ENCOUNTER → 2020-05-15 | Outpatient (CLI) | payer BC ==
--- NOTE | 2020-05-15 15:09 | Diagnostic Imaging Report ---
INDICATION: survey. TECHNIQUE: Multiple real-time grayscale images were obtained over the gravid uterus. COMPARISON: 03/21/2020. FINDINGS: There is a single live fetus in a variable presentation. heart rate was recorded at 143 bpm. Placenta does appear to be low lying and posterior. There is a probable uterine contraction noted anteriorly. Amniotic fluid index measures 17.2 cm. bladder and stomach are unremarkable. brain is unremarkable. There is a three-vessel cord with normal insertion. spine is unremarkable. The kidneys as well as the four-chamber heart views are limited due to position. Biometrical measurements are as follows: Biparietal 4.88 cm, age 20 weeks 6 days. Head circumference 17.95 cm, age 20 weeks 3 days. Abdominal circumference 16.31 cm, age 21 weeks 3 days. Femur length 3.58 cm, age 21 weeks 3 days. Sonographic estimate age: 21 weeks 1 days. Sonographic estimated date of delivery: 09/24/2020. Estimated Weight: 409 gm (+/- 60 gm). LMP percentile: 97%. heart rate: 143 beats per minute. number: 1 of 1. IMPRESSION: Single live IUP of approximately 21 weeks gestational age showing normal interval growth when compared with prior exam. The patient does appear to have a low lying placenta and follow-up would be recommended. In addition, there is limited evaluation of the kidneys and four-chamber heart view due to position. Dictated by: Dictated on workstation # [id number]
== END ==
LOC: RAD 09:49
PROVIDERS: ATTEND Nurse Practitioner Women's Health
DX: Z36.9 Encounter for antenatal screening, unspecified (principal); Z3A.21 21 weeks gestation of pregnancy
CPT/HCPCS: 76805

== ENCOUNTER → 2020-06-27 | Outpatient (CLI) | payer BC ==
--- NOTE | 2020-06-27 17:14 | Diagnostic Imaging Report ---
EXAM: OB ULTRASOUND COMPLETE DATE: June 27, 2020 COMPARISON: May 15, 2020. INDICATION: 34-year-old female, low lying placenta. FINDINGS: Multiple grayscale sonographic images were obtained of the gravid uterus. Overview: Within the uterus there is a single living gestation in breech position. heart rate was not documented on a provided image. The amnionic fluid volume is normal with an amniotic fluid index of 19.9. The placenta is posterior and without previa. The placental tip measures 6.6 cm from the cervical os. The cervical length is estimated at 6.0 cm. growth parameters are summarized in detail on the accompanying separate chart. The approximate mean gestational age by today's ultrasound measurements is 27 weeks 6 days +/- 2 week variability. Recommend correlation with earlier and more accurate gestational dating measurements. Estimated weight based on today's measurements is 1053 g. anatomic survey: There is an unremarkable four-chamber view of the heart. There is no demonstrated hydronephrosis. The stomach does appear to be visualized. There are limited intracranial images. There are no images of the spine. There is limited evaluation of the upper lip. There are no additional dedicated anatomic survey images provided. IMPRESSION: 1. Single intrauterine with estimated gestational age based on today's measurements of 27 weeks and 6 days +/- 2 weeks. Recommend correlation with earlier more accurate dating methods. 2. Very limited survey images were provided. There is a normal four-chamber view of the heart. There is no demonstrated hydronephrosis. 3. heart rate is not documented on provided images. Biometrical measurements are as follows: Biparietal 7.08 cm, age 28 weeks 4 days. Head circumference 26.08 cm, age 28 weeks 3 days. Abdominal circumference 23.16 cm, age 27 weeks 4 days. Femur length 4.89 cm, age 26 weeks 4 days. Sonographic estimate age: 27 weeks 6 days. Sonographic estimated date of delivery: 09/20/2020. Estimated Weight: 1053 gm (+/- 154 gm). LMP percentile: 80%. heart rate: N/A beats per minute. number: 1 of 1. Dictated by: Dictated on workstation # [id number]
== END ==
LOC: RAD 15:15
PROVIDERS: ATTEND Obstetrics & Gynecology
DX: O44.42 Low lying placenta NOS or without hemorrhage, second trimester (principal); Z3A.27 27 weeks gestation of pregnancy
CPT/HCPCS: 76805

== ENCOUNTER 2020-09-13 20:08 | Inpatient (IN) | payer BC ==
[~2020-09-13] VITALS: Ht 162.6 cm; Wt 131.2 kg
--- NOTE | 2020-09-13 20:15 | NUR ---
AMIRA GOLDSMITH presented to unit via ambulation from ED, accompanied by s.o. for INDUCTION. AMIRA GOLDSMITH weighed, gowned, voided, and to bed. EFHM and TOCO applied, VS taken. AMIRA GOLDSMITH oriented to bed controls, call light, TV, heat, and A/C controls.
[2020-09-13] MEDS ORDERED: TERBUTALINE INJ 1 MG/ML (BRETHINE) AMP SC PRN (20:30)
[2020-09-13] MEDS ORDERED: LACTATED RINGERS 1,000 ML IV SCH (20:30)
[2020-09-13] MEDS ORDERED: MINERAL OIL CONCENTRATE 99.9% 15 ML UDC TOP PRN (20:30)
[2020-09-13] MEDS ORDERED: LIDOCAINE/EPI 2% 1:200,00 (XYLOCAINE) 10 ML VIAL INJ PRN (20:30)
[2020-09-13] MEDS ORDERED: MISOPROSTOL 100 MCG (CYTOTEC) TAB PO ONE (20:30)
[2020-09-13 21:00] VITALS: BP 140/67
[2020-09-13] MEDS ORDERED: D5 LR IV SOLUTION 1,000 ML IV ONE (21:10)
[2020-09-13] MEDS ORDERED: MISOPROSTOL 100 MCG (CYTOTEC) TAB ONE (21:14)
[2020-09-13 21:18] VITALS: BP 135/86
[2020-09-13 21:25] LABS: BASOPHILS % (AUTO) 0 % (0-10); EOSINOPHILS # (AUTO) 0.1 10^3/uL (0.0-0.3); EOSINOPHILS % (AUTO) 1 % (0-10); HEMATOCRIT 34 % (35-52); HEMOGLOBIN 11.2 g/dL (11.5-16.0); LYMPHOCYTES # (AUTO) 2.2 10^3/uL (1.0-4.0); LYMPHOCYTES % (AUTO) 18 % (12-44); MEAN CORPUSCULAR HEMOGLOBIN 28 pg (25-34); MEAN CORPUSCULAR HGB CONC 33 g/dL (32-36); MEAN CORPUSCULAR VOLUME 86 fL (80-99); MEAN PLATELET VOLUME 11.2 fL (9.0-12.2); MONOCYTES # (AUTO) 0.8 10^3/uL (0.0-1.0); MONOCYTES % (AUTO) 6 % (0-12); NEUTROPHILS # (AUTO) 9.2 10^3/uL (1.8-7.8); NEUTROPHILS % (AUTO) 74 % (42-75); PLATELET COUNT 314 10^3/uL (130-400); WHITE BLOOD COUNT 12.4 10^3/uL (4.3-11.0)
[2020-09-13] MEDS: D5 LR IV SOLUTION 1,000 ML IV SCH (21:25)
[2020-09-13 21:31] LABS: ALANINE AMINOTRANSFERASE 20 U/L (0-55); ALBUMIN 3.2 GM/DL (3.2-4.5); ALKALINE PHOSPHATASE 167 U/L (40-136); BILIRUBIN,TOTAL 0.2 MG/DL (0.1-1.0); BUN/CREATININE RATIO 15; CALCIUM 8.7 MG/DL (8.5-10.1); CARBON DIOXIDE 16 MMOL/L (21-32); CHLORIDE 107 MMOL/L (98-107); CREATININE SERUM 0.53 MG/DL (0.60-1.30); GFR ESTIMATED > 60; GLUCOSE 158 MG/DL (70-105); POTASSIUM 3.8 MMOL/L (3.6-5.0); SODIUM 136 MMOL/L (135-145); TOTAL PROTEIN 6.4 GM/DL (6.4-8.2)
[2020-09-13 21:52] LABS: BILIRUBIN,URINE NEGATIVE (NEGATIVE); CLARITY,URINE CLEAR; COLOR,URINE YELLOW; GLUCOSE, URINE (UA) TRACE (NEGATIVE); KETONES,URINE TRACE (NEGATIVE); LEUKOCYTE ESTERASE ,URINE NEGATIVE (NEGATIVE); NITRITE,URINE NEGATIVE (NEGATIVE); PH,URINE 6.5 (5-9); PROTEIN,URINE NEGATIVE (NEGATIVE)
[2020-09-13 22:01] LABS: AMORPHOUS SEDIMENT,UR RARE AMOR URATES /LPF; BACTERIA,URINE FEW /HPF; RBC,URINE RARE /HPF
[2020-09-13] MEDS ORDERED: ZOLPIDEM 5 MG (AMBIEN) TAB ONE (22:24)
[2020-09-13] MEDS ORDERED: ZOLPIDEM 5 MG (AMBIEN) TAB PO ONE (22:30)
[2020-09-13] MEDS ORDERED: fentaNYL 2 mcg/ml BUPIVA 0.125 100 ML ONE (22:50)
[2020-09-13] MEDS ORDERED: LIDOCAINE PF 2% 5 ML (XYLOCAINE) VIAL ONE (23:48)
[2020-09-13] MEDS ORDERED: fentaNYL INJECTION 100 MCG/2 ML AMP ONE (23:48)
[2020-09-13] MEDS ORDERED: BUPIVACAINE 0.25% 30 ML (SENSORCAINE) VIAL ONE (23:48)
[2020-09-13 23:50] VITALS: BP 121/61
[2020-09-13 23:57] VITALS: BP 166/102
[2020-09-14] VITALS (79 sets, daily range): BP systolic 114–178; BP diastolic 56–112
[2020-09-14] MEDS ORDERED: LACTATED RINGERS 1,000 ML IV SCH
[2020-09-14] MEDS ORDERED: NALOXONE 0.4 MG/ML 1 ML (NARCAN) VIAL IV PRN
[2020-09-14] MEDS ORDERED: diphenhydrAMINE 50 MG/ML INJ (BENADRYL) IV PRN
[2020-09-14] MEDS: EPIDURAL (fentaNYL 2 MCG/ML BUPIVA 0.125%)100 ML BAG EPI PRN ×3 (00:14→14:51)
[2020-09-14] MEDS: ONDANSETRON 4 MG/2 ML (SDV) Z0FRAN IV PRN ×2 (00:22→13:29)
[2020-09-14] MEDS: MISOPROSTOL 100 MCG (CYTOTEC) TAB PO SCH ×2 (01:00→04:18)
[2020-09-14] MEDS: D5 LR IV SOLUTION 1,000 ML IV SCH ×2 (03:39→11:35)
[2020-09-14] MEDS: CATHETER FLUSH 10 ML SYR IV SCH ×2 (04:15→19:51)
[2020-09-14] MEDS ORDERED: OXYTOCIN PRE-MIX DRIP 500 ML IV ONE (05:41)
[2020-09-14] MEDS ORDERED: OXYTOCIN PRE-MIX DRIP 500 ML IV SCH ×2 (06:00→17:00)
--- NOTE | 2020-09-14 08:00 | NUR ---
called. update on pt's status given. monitor tracing and pitocin infusion reviewed. no new orders received @ time.
--- NOTE | 2020-09-14 08:51 | Progress Note ---
Progress Note Assessment/Plan Date Seen by Provider: Sep 14, 2020 Time Seen by Provider: 08:30 Events since last exam Admitted for induction. Contractions had slowed to q 6-7 and cervix had not changed. So miso was started. She was approximately 3 cm when anesthesia was available for an epidural on another patient so she had epidural placement. Then had SROM with clear fluid. Pitocin started at 0530 as cervix had not changed appreciably. Currently she is 5 cm dilated. BP was elevated on admission but no preeclampsia. Has just received a bolus on epidural. Last she went quickly from 6-complete and from a high position to delivered. Also had hematoma without laceration that required drainage. she had PPH with first also due to vaginal wall tear. this required return to surgery as well. 09/13/20 09/13/20 09/13/20 09/13/20 21:00 21:18 23:50 23:57 Temp 36.1 Pulse 106 108 101 99 Resp 18 18 18 18 B/P (MAP) 135/86 (102) 121/61 (81) 166/102 (123) Pulse Ox 99 98 O2 Delivery Room Air 09/14/20 09/14/20 09/14/20 09/14/20 00:01 00:05 00:10 00:12 Pulse 110 109 113 102 Resp 18 18 18 18 B/P (MAP) 158/97 (117) 156/91 (112) 155/94 (114) 147/87 (107) Pulse Ox 99 98 98 98 09/14/20 09/14/20 09/14/20 09/14/20 00:18 00:21 00:24 00:27 Pulse 104 103 109 99 Resp 18 18 18 18 B/P (MAP) 141/82 (101) 152/72 (98) 141/72 (95) 145/69 (94) Pulse Ox 98 98 97 97 09/14/20 09/14/20 09/14/20 09/14/20 00:40 00:45 01:00 01:15 Pulse 97 97 99 96 Resp 18 18 18 18 B/P (MAP) 128/71 (90) 126/65 (85) 119/58 (78) 133/75 (94) Pulse Ox 97 96 97 09/14/20 09/14/20 09/14/20 09/14/20 01:30 01:45 02:00 02:15 Pulse 96 97 100 103 Resp 18 18 18 18 B/P (MAP) 129/69 (89) 126/75 (92) 123/74 (90) 121/65 (83) Pulse Ox 96 09/14/20 09/14/20 09/14/20 09/14/20 02:30 02:45 03:00 03:15 Pulse 93 101 93 88 Resp 18 18 18 18 B/P (MAP) 127/62 (83) 123/73 (90) 128/74 (92) 132/64 (86) 09/14/20 09/14/20 09/14/20 09/14/20 03:30 03:45 04:00 04:15 Pulse 94 93 100 92 Resp 18 18 18 18 B/P (MAP) 125/74 (91) 115/56 (75) 132/66 (88) 138/68 (91) 09/14/20 09/14/20 09/14/20 09/14/20 04:30 04:45 05:00 05:15 Pulse 89 99 97 97 Resp 18 18 18 18 B/P (MAP) 134/66 (88) 137/81 (99) 139/82 (101) 130/84 (99) 09/14/20 09/14/20 09/14/20 09/14/20 05:30 05:45 06:00 06:15 Temp 36.6 Pulse 96 95 88 83 Resp 18 18 18 18 B/P (MAP) 130/91 (104) 139/89 (106) 141/89 (106) 141/86 (104) 09/14/20 09/14/20 09/14/20 06:30 06:45 07:00 Pulse 81 88 92 Resp 18 18 18 B/P (MAP) 134/74 (94) 133/73 (93) 147/81 (103) 09/13/20 23:59 Intake Total 2000 ml Balance 2000 ml Laboratory Tests Test 09/13/20 20:30 09/14/20 00:30 Range/Units White Blood Count 12.4 H 4.3-11.0 10^3/uL Red Blood Count 3.95 3.80-5.11 10^6/uL Hemoglobin 11.2 L 11.5-16.0 g/dL Hematocrit 34 L 35-52 % Mean Corpuscular Volume 86 80-99 fL Mean Corpuscular Hemoglobin 28 25-34 pg Mean Corpuscular Hemoglobin Concent 33 32-36 g/dL Red Cell Distribution Width 16.8 H 10.0-14.5 % Platelet Count 314 130-400 10^3/uL Mean Platelet Volume 11.2 9.0-12.2 fL Immature Granulocyte % (Auto) 1 % Neutrophils (%) (Auto) 74 42-75 % Lymphocytes (%) (Auto) 18 12-44 % Monocytes (%) (Auto) 6 0-12 % Eosinophils (%) (Auto) 1 0-10 % Basophils (%) (Auto) 0 0-10 % Neutrophils # (Auto) 9.2 H 1.8-7.8 10^3/uL Lymphocytes # (Auto) 2.2 1.0-4.0 10^3/uL Monocytes # (Auto) 0.8 0.0-1.0 10^3/uL Eosinophils # (Auto) 0.1 0.0-0.3 10^3/uL Basophils # (Auto) 0.0 0.0-0.1 10^3/uL Immature Granulocyte # (Auto) 0.1 0.0-0.1 10^3/uL Urine Color YELLOW Urine Clarity CLEAR Urine pH 6.5 5-9 Urine Specific [place] 1.020 1.016-1.022 Urine Protein NEGATIVE NEGATIVE Urine Glucose (UA) TRACE H NEGATIVE Urine Ketones TRACE H NEGATIVE Urine Nitrite NEGATIVE NEGATIVE Urine Bilirubin NEGATIVE NEGATIVE Urine Urobilinogen 0.2 < = 1.0 MG/DL Urine Leukocyte Esterase NEGATIVE NEGATIVE Urine RBC (Auto) 1+ H NEGATIVE Urine RBC RARE /HPF Urine WBC 2-5 /HPF Urine Squamous Epithelial Cells 10-25 H /HPF Urine Crystals PRESENT H /LPF Urine Amorphous Sediment RARE JAUN URATES H /LPF Urine Bacteria FEW H /HPF Urine Casts NONE /LPF Urine Mucus LARGE H /LPF Urine Culture Indicated CULTURE PENDING Urine Creatinine 78 30-125 MG/DL Urine Protein/Creatinine Ratio 0.24 Sodium Level 136 135-145 MMOL/L Potassium Level 3.8 3.6-5.0 MMOL/L Chloride Level 107 98-107 MMOL/L Carbon Dioxide Level 16 L 21-32 MMOL/L Anion Gap 13 5-14 MMOL/L Blood Urea Nitrogen 8 7-18 MG/DL Creatinine 0.53 L 0.60-1.30 MG/DL Estimat Glomerular Filtration Rate > 60 BUN/Creatinine Ratio 15 Glucose Level 158 H 70-105 MG/DL Calcium Level 8.7 8.5-10.1 MG/DL Corrected Calcium 9.3 8.5-10.1 MG/DL Total Bilirubin 0.2 0.1-1.0 MG/DL Aspartate Amino Transf (AST/SGOT) 18 5-34 U/L Alanine Aminotransferase (ALT/SGPT) 20 0-55 U/L Alkaline Phosphatase 167 H 40-136 U/L Total Protein 6.4 6.4-8.2 GM/DL Albumin 3.2 3.2-4.5 GM/DL well being is reassuring. No decelerations Anticipate Assessment/Plan 1. 37 3/7 weeks 2. gestational hypertension 3. induction Continue induction with pitocin augmentation. anticipate Vitals Last set of Vitals Signs Vital Signs Date Time Temp Pulse Resp B/P (MAP) Pulse Ox O2 Delivery O2 Flow Rate FiO2 09/14/20 07:00 92 18 147/81 (103) 09/14/20 05:45 36.6 09/14/20 01:30 96 09/13/20 21:00 Room Air I&O I&O Intake and Output 09/13/20 23:59 Intake Total 2000 ml Balance 2000 ml Intake IV Total 2000 ml Daily Weight Change No Labs Laboratory Tests 09/13/20 20:30: White Blood Count 12.4H, Red Blood Count 3.95, Hemoglobin 11.2L, Hematocrit 34L, Mean Corpuscular Volume 86, Mean Corpuscular Hemoglobin 28, Mean Corpuscular Hemoglobin Concent 33, Red Cell Distribution Width 16.8H, Platelet Count 314, Mean Platelet Volume 11.2, Immature Granulocyte % (Auto) 1, Neutrophils (%) (Auto) 74, Lymphocytes (%) (Auto) 18, Monocytes (%) (Auto) 6, Eosinophils (%) (Auto) 1, Basophils (%) (Auto) 0, Neutrophils # (Auto) 9.2H, Lymphocytes # (Auto) 2.2, Monocytes # (Auto) 0.8, Eosinophils # (Auto) 0.1, Basophils # (Auto) 0.0, Immature Granulocyte # (Auto) 0.1, Urine Color YELLOW, Urine Clarity CLEAR, Urine pH 6.5, Urine Specific [place] 1.020, Urine Protein NEGATIVE, Urine Glucose (UA) TRACEH, Urine Ketones TRACEH, Urine Nitrite NEGATIVE, Urine Bilirubin NEGATIVE, Urine Urobilinogen 0.2, Urine Leukocyte Esterase NEGATIVE, Urine RBC (Auto) 1+H, Urine RBC RARE, Urine WBC 2-5, Urine Squamous Epithelial Cells 10-25H, Urine Crystals PRESENTH, Urine Amorphous Sediment RARE JAUN URATESH, Urine Bacteria FEWH, Urine Casts NONE, Urine Mucus LARGEH, Urine Culture Indicated CULTURE PENDING, Urine Creatinine 78, Urine Protein/Creatinine Ratio 0.24, Sodium Level 136, Potassium Level 3.8, Chloride Level 107, Carbon Dioxide Level 16L, Anion Gap 13, Blood Urea Nitrogen 8, Creatinine 0.53L, Estimat Glomerular Filtration Rate > 60, BUN/Creatinine Ratio 15, Glucose Level 158H, Calcium Level 8.7, Corrected Calcium 9.3, Total Bilirubin 0.2, Aspartate Amino Transf (AST/SGOT) 18, Alanine Aminotransferase (ALT/SGPT) 20, Alkaline Phosphatase 167H, Total Protein 6.4, Albumin 3.2 09/14/20 00:30: FLORENTIN CLINTON DO Sep 14, 2020 08:51
[2020-09-14] MEDS ORDERED: TRANEXAMIC ACID INJECTION 1,000 MG in NS (IVPB) 100 ML IV NR (11:15)
--- NOTE | 2020-09-14 12:06 | NUR ---
called to check on pt's status. update given. no new order received.
[2020-09-14] MEDS ORDERED: MISOPROSTOL 200 MCG (CYTOTEC) TABLET ONE (13:21)
[2020-09-14] MEDS ORDERED: LABETALOL HCL 20 MG/4 ML VIAL ONE (14:32)
--- NOTE | 2020-09-14 14:33 | NUR ---
was called r/t elevated BP. order received for Labetalol IV
[2020-09-14] MEDS ORDERED: LABETALOL HCL 20 MG/4 ML VIAL IV NR (14:45)
--- NOTE | 2020-09-14 16:45 | OB Labor & Delivery Record ---
Vag Delivery Note Vag Delivery Note Date of Delivery: 09/14/20 Preoperative Diagnosis: Elisha Cr is a 34 /Para 3 /2 ,Gestational Age 37 3/7 weeks, gestational hypertension, history of post hemorrhage, history of vaginal hematoma Postoperative Diagnosis: Same Surgeon: FLORENTIN CLINTON Anesthesia: epidural Delivery Type: vaginal Findings: Viable male infant, apgars pending, weight 7#5 ounces Lacerations: 1st degree Intact placenta with 3 vessel cord. No nuchal cord, or shoulder dystocia. + shoulder/body cord delivered through Cytotec 800 mcg placed for hemorrhage prophylaxis 1 gm tranxemic acid bolus given Estimated Blood Loss: 200 ml Complications: None Condition: Stable Description of Procedure: The patient is a 34 year old female who presented for induction of labor at 37 2/7 weeks due to gestational hypertension. Blood pressures worsening despite po antihypertensives, modified bed rest. She was admitted and informed consent was obtained. Her labor course was remarkable for misoprostol x 1, SROM, epidural placement, augmentation with oxytocin. She progressed to complete dilatation and began to push. She was then set up for delivery. The infant's head was delivered atraumatically in the OA position. The shoulders and remainder of the infant's body were then delivered without difficulty. Upon delivery, the head was held below the level of the perineum and the mouth and nares were bulb suctioned. The cord was doubly clamped and cut and the was handed off to the pediatric staff. An intact placenta with 3-vessel cord delivered via Girish and there was found to be minimal bleeding.~ Vigorous fundal massage was performed and the fundus was found to be firm. IV oxytocin was given, pr cytotec, IV transexemic acid were given to prevent post hemorrhage. Examination of the vagina and perineum revealed a 1st degree laceration repaired in the usual fashion with 3-0 vicryl suture. There were no vaginal lacerations or hematomas noted. A thorough vaginal exam and rectal exam was done. She does have a rectocele but no vaginal tearing noted. Following the repair, sponge, instrument and needle counts were correct. Mom and baby were both in stable condition in the labor suite. Vitals - Labs Vital Signs - I&O Vital Signs Date Time Temp Pulse Resp B/P (MAP) Pulse Ox O2 Delivery O2 Flow Rate FiO2 09/14/20 15:15 95 18 125/72 (89) 99 Room Air 09/14/20 15:00 93 18 115/68 (84) 99 Room Air 09/14/20 14:45 36.1 95 18 114/65 (81) 98 Room Air 09/14/20 14:30 93 18 165/102 (123) 96 Room Air 09/14/20 14:15 88 18 177/101 (126) 96 Room Air 09/14/20 14:00 97 18 165/103 (123) 99 Room Air 09/14/20 13:45 92 18 178/106 (130) 97 Room Air 09/14/20 13:30 110 18 132/88 (103) 97 Room Air 09/14/20 13:15 92 18 160/101 (120) 98 Room Air 09/14/20 13:00 99 18 148/99 (115) 94 Room Air 09/14/20 12:45 36.8 108 18 135/85 (102) 99 Room Air 09/14/20 12:30 97 18 132/74 (93) 97 Room Air 09/14/20 12:15 96 18 131/59 (83) 99 Room Air 09/14/20 12:00 85 18 143/70 (94) 97 Room Air 09/14/20 11:45 88 18 129/64 (85) 95 Room Air 09/14/20 11:30 102 18 146/80 (102) 99 Room Air 09/14/20 11:15 95 18 145/98 (114) 98 Room Air 09/14/20 11:00 98 18 135/84 (101) 97 Room Air 09/14/20 10:45 83 18 162/86 (111) 97 Room Air 09/14/20 10:30 93 18 134/70 (91) 98 Room Air 09/14/20 10:15 100 18 126/71 (89) 97 Room Air 09/14/20 10:00 97 18 130/71 (90) 95 Room Air 09/14/20 09:45 101 18 124/68 (86) 97 Room Air 09/14/20 09:30 97 18 140/85 (103) 99 Room Air 09/14/20 09:15 95 18 130/70 (90) 99 Room Air 09/14/20 09:00 93 18 135/69 (91) 97 Room Air 09/14/20 08:45 94 18 131/73 (92) 99 Room Air 09/14/20 08:30 36.1 97 18 141/78 (99) 97 Room Air 09/14/20 08:15 94 18 143/83 (103) 97 Room Air 09/14/20 08:00 90 18 143/89 (107) 98 Room Air 09/14/20 07:45 90 18 144/93 (110) 98 Room Air 09/14/20 07:30 88 18 143/89 (107) Room Air 09/14/20 07:15 83 18 145/87 (106) Room Air 09/14/20 07:00 92 18 147/81 (103) 09/14/20 06:45 88 18 133/73 (93) 09/14/20 06:30 81 18 134/74 (94) 09/14/20 06:15 83 18 141/86 (104) 09/14/20 06:00 88 18 141/89 (106) 09/14/20 05:45 36.6 95 18 139/89 (106) 09/14/20 05:30 96 18 130/91 (104) 09/14/20 05:15 97 18 130/84 (99) 09/14/20 05:00 97 18 139/82 (101) 09/14/20 04:45 99 18 137/81 (99) 09/14/20 04:30 89 18 134/66 (88) 09/14/20 04:15 92 18 138/68 (91) 09/14/20 04:00 100 18 132/66 (88) 09/14/20 03:45 93 18 115/56 (75) 09/14/20 03:30 94 18 125/74 (91) 09/14/20 03:15 88 18 132/64 (86) 09/14/20 03:00 93 18 128/74 (92) 09/14/20 02:45 101 18 123/73 (90) 09/14/20 02:30 93 18 127/62 (83) 09/14/20 02:15 103 18 121/65 (83) 09/14/20 02:00 100 18 123/74 (90) 09/14/20 01:45 97 18 126/75 (92) 09/14/20 01:30 96 18 129/69 (89) 96 09/14/20 01:15 96 18 133/75 (94) 97 09/14/20 01:00 99 18 119/58 (78) 96 09/14/20 00:45 97 18 126/65 (85) 09/14/20 00:40 97 18 128/71 (90) 97 09/14/20 00:27 99 18 145/69 (94) 97 09/14/20 00:24 109 18 141/72 (95) 97 09/14/20 00:21 103 18 152/72 (98) 98 09/14/20 00:18 104 18 141/82 (101) 98 09/14/20 00:12 102 18 147/87 (107) 98 09/14/20 00:10 113 18 155/94 (114) 98 09/14/20 00:05 109 18 156/91 (112) 98 09/14/20 00:01 110 18 158/97 (117) 99 09/13/20 23:57 99 18 166/102 (123) 98 09/13/20 23:50 101 18 121/61 (81) 09/13/20 21:18 108 18 135/86 (102) 09/13/20 21:00 36.1 106 18 99 Room Air I & O 09/14/20 07:00 Intake Total 3000 ml Balance 3000 ml Labs Laboratory Tests 09/13/20 20:30: White Blood Count 12.4H, Red Blood Count 3.95, Hemoglobin 11.2L, Hematocrit 34L, Mean Corpuscular Volume 86, Mean Corpuscular Hemoglobin 28, Mean Corpuscular Hemoglobin Concent 33, Red Cell Distribution Width 16.8H, Platelet Count 314, Mean Platelet Volume 11.2, Immature Granulocyte % (Auto) 1, Neutrophils (%) ( Auto) 74, Lymphocytes (%) (Auto) 18, Monocytes (%) (Auto) 6, Eosinophils (%) (Auto) 1, Basophils (%) (Auto) 0, Neutrophils # (Auto) 9.2H, Lymphocytes # (Auto) 2.2, Monocytes # (Auto) 0.8, Eosinophils # (Auto) 0.1, Basophils # (Auto) 0.0, Immature Granulocyte # (Auto) 0.1, Urine Color YELLOW, Urine Clarity CLEAR, Urine pH 6.5, Urine Specific [place] 1.020, Urine Protein NEGATIVE, Urine Glucose (UA) TRACEH, Urine Ketones TRACEH, Urine Nitrite NEGATIVE, Urine Bilirubin NEGATIVE, Urine Urobilinogen 0.2, Urine Leukocyte Esterase NEGATIVE, Urine RBC (Auto) 1+H, Urine RBC RARE, Urine WBC 2-5, Urine Squamous Epithelial Cells 10-25H, Urine Crystals PRESENTH, Urine Amorphous Sediment RARE JAUN URATESH, Urine Bacteria FEWH, Urine Casts NONE, Urine Mucus LARGEH, Urine Culture Indicated CULTURE PENDING, Urine Creatinine 78, Urine Protein/Creatinine Ratio 0.24, Sodium Level 136, Potassium Level 3.8, Chloride Level 107, Carbon Dioxide Level 16L, Anion Gap 13, Blood Urea Nitrogen 8, Creatinine 0.53L, Estimat Glomerular Filtration Rate > 60, BUN/Creatinine Ratio 15, Glucose Level 158H, Calcium Level 8.7, Corrected Calcium 9.3, Total Bilirubin 0.2, Aspartate Amino Transf (AST/SGOT) 18, Alanine Aminotransferase (ALT/SGPT) 20, Alkaline Phosphatase 167H, Total Protein 6.4, Albumin 3.2 09/14/20 00:30: Microbiology 09/13/20 Urine Culture - Final, Complete >=3 Gram Positive Isolates FLORENTIN CLINTON DO Sep 14, 2020 16:45
[2020-09-14] MEDS ORDERED: WITCH HAZEL(TUCKS) 40 EA JAR TOP PRN (17:00)
[2020-09-14] MEDS ORDERED: BENZOCAINE/MENTHOL (DERMOPLAST) 60 ML CAN TP PRN (17:00)
[2020-09-14] MEDS ORDERED: KETOROLAC 30 MG/ML VIAL IVP ONE (17:00)
[2020-09-14] MEDS ORDERED: TETANUS,DIPTH,PERTUSS P/F (BOOSTRIX) 0.5 ML VIAL IM ONE (17:00)
[2020-09-14] MEDS ORDERED: DIBUCAINE (NUPERCAINAL) 1% OINT 30 GM TOP PRN (17:00)
[2020-09-14] MEDS ORDERED: MEASLES,MUMPS,RUBELLA 1 EA INJ SQ ONE (17:00)
--- NOTE | 2020-09-14 18:20 | NUR ---
assisted up to BR. +void/BM. nichole-care offered. Dermaplast to site. pad & panties applied.
--- NOTE | 2020-09-14 18:30 | NUR ---
pt transferred to room 310 via w/c with this RN, and @ side. transported via open air crib. call light within reach. familiarized with room surroundings.
--- NOTE | 2020-09-14 18:41 | NUR ---
was notified of 255cc EBL noted on v-pad and chux. no new orders received.
--- NOTE | 2020-09-14 19:16 | NUR ---
report given to next shift.
[2020-09-14] MEDS: ACETAMINOPHEN 500 MG TAB (TYLENOL) PO SCH (20:01)
[2020-09-14] MEDS: DOCUSATE SODIUM 100 MG (COLACE) CAP PO SCH (20:01)
[2020-09-14] MEDS ORDERED: CATHETER FLUSH 10 ML SYR IV SCH (22:00)
[2020-09-15 00:26] VITALS: BP 158/88
[2020-09-15] MEDS: IBUPROFEN 600 MG (MOTRIN) TAB PO SCH ×4 (00:26→18:03)
[2020-09-15 04:31] VITALS: BP 141/88
[2020-09-15] MEDS: ACETAMINOPHEN 500 MG TAB (TYLENOL) PO SCH ×2 (04:31→12:25)
[2020-09-15 06:14] LABS: BASOPHILS % (AUTO) 0 % (0-10); EOSINOPHILS # (AUTO) 0.1 10^3/uL (0.0-0.3); EOSINOPHILS % (AUTO) 1 % (0-10); HEMATOCRIT 34 % (35-52); HEMOGLOBIN 11.2 g/dL (11.5-16.0); LYMPHOCYTES # (AUTO) 2.4 10^3/uL (1.0-4.0); LYMPHOCYTES % (AUTO) 18 % (12-44); MEAN CORPUSCULAR HEMOGLOBIN 28 pg (25-34); MEAN CORPUSCULAR HGB CONC 33 g/dL (32-36); MEAN CORPUSCULAR VOLUME 86 fL (80-99); MEAN PLATELET VOLUME 10.8 fL (9.0-12.2); MONOCYTES # (AUTO) 0.9 10^3/uL (0.0-1.0); MONOCYTES % (AUTO) 7 % (0-12); NEUTROPHILS # (AUTO) 9.6 10^3/uL (1.8-7.8); NEUTROPHILS % (AUTO) 73 % (42-75); PLATELET COUNT 281 10^3/uL (130-400); WHITE BLOOD COUNT 13.1 10^3/uL (4.3-11.0)
[2020-09-15] MEDS ORDERED: PRENATAL VITAMIN 1 EA TAB PO SCH (07:00)
--- NOTE | 2020-09-15 08:36 | Postpartum Progress Note ---
Note Note Day # 1 s/p Subjective: Patient is without complaints. Ambulating, voiding. Tolerating a regular diet w ithout nausea or vomiting. Normal lochia. Pain is well controlled with oral pain medications. breast feeding. BP have been labile since delivery but have not required medication. Complains of uterine cramping. Had minimal bleeding since surgery. Objective: 09/15/20 09/15/20 00:26 04:31 Temp 36.0 36.1 Pulse 82 85 Resp 18 18 B/P (MAP) 158/88 (111) 141/88 (105) Pulse Ox 97 96 O2 Delivery Room Air Room Air 09/15/20 00:00 Intake Total 610 ml Balance 610 ml Laboratory Tests Test 09/15/20 06:05 Range/Units White Blood Count 13.1 H 4.3-11.0 10^3/uL Red Blood Count 4.00 3.80-5.11 10^6/uL Hemoglobin 11.2 L 11.5-16.0 g/dL Hematocrit 34 L 35-52 % Mean Corpuscular Volume 86 80-99 fL Mean Corpuscular Hemoglobin 28 25-34 pg Mean Corpuscular Hemoglobin Concent 33 32-36 g/dL Red Cell Distribution Width 16.9 H 10.0-14.5 % Platelet Count 281 130-400 10^3/uL Mean Platelet Volume 10.8 9.0-12.2 fL Immature Granulocyte % (Auto) 1 % Neutrophils (%) (Auto) 73 42-75 % Lymphocytes (%) (Auto) 18 12-44 % Monocytes (%) (Auto) 7 0-12 % Eosinophils (%) (Auto) 1 0-10 % Basophils (%) (Auto) 0 0-10 % Neutrophils # (Auto) 9.6 H 1.8-7.8 10^3/uL Lymphocytes # (Auto) 2.4 1.0-4.0 10^3/uL Monocytes # (Auto) 0.9 0.0-1.0 10^3/uL Eosinophils # (Auto) 0.1 0.0-0.3 10^3/uL Basophils # (Auto) 0.0 0.0-0.1 10^3/uL Immature Granulocyte # (Auto) 0.1 0.0-0.1 10^3/uL Physical Exam: General - Alert and oriented, no apparent distress Abdomen - Soft, appropriately tender to palpation, non-distended, fundus firm at umbilicus Extremities - no edema, negative Ade's bilaterally 1 Assessment: 1. post- day # 1, status post spontaneous vaginal delivery. Recovering well, hemodynamically stable 2. hypothyroid. continue antepartum dosing of synthroid 3. monitor bp and repeat bp in 2 weeks. No meds [] Plan: Routine care. Encourage breast feeding. Encourage ambulation. Ferrous sulfate supplementation. Plan for discharge Vitals - Labs Vital Signs - I&O Vital Signs Date Time Temp Pulse Resp B/P (MAP) Pulse Ox O2 Delivery O2 Flow Rate FiO2 09/15/20 04:31 36.1 85 18 141/88 (105) 96 Room Air 09/15/20 00:26 36.0 82 18 158/88 (111) 97 Room Air 09/14/20 20:01 36.6 100 18 132/88 (103) 97 Room Air 09/14/20 18:00 96 18 158/76 (103) Room Air 09/14/20 17:45 97 18 178/102 (127) Room Air 09/14/20 17:30 93 18 167/112 (130) Room Air 09/14/20 17:15 90 18 143/81 (101) Room Air 09/14/20 17:00 86 18 149/95 (113) Room Air 09/14/20 16:45 37.0 88 18 156/89 (111) Room Air 09/14/20 16:30 92 18 160/85 (110) Room Air 09/14/20 16:15 95 18 161/100 (120) Room Air 09/14/20 16:00 118 18 100 Room Air 09/14/20 15:45 91 18 132/70 (90) 100 Room Air 09/14/20 15:30 95 18 125/72 (89) 99 Room Air 09/14/20 15:30 96 18 100 Room Air 09/14/20 15:15 95 18 125/72 (89) 99 Room Air 09/14/20 15:00 93 18 115/68 (84) 99 Room Air 09/14/20 14:45 36.1 95 18 114/65 (81) 98 Room Air 09/14/20 14:30 93 18 165/102 (123) 96 Room Air 09/14/20 14:15 88 18 177/101 (126) 96 Room Air 09/14/20 14:00 97 18 165/103 (123) 99 Room Air 09/14/20 13:45 92 18 178/106 (130) 97 Room Air 09/14/20 13:30 110 18 132/88 (103) 97 Room Air 09/14/20 13:15 92 18 160/101 (120) 98 Room Air 09/14/20 13:00 99 18 148/99 (115) 94 Room Air 09/14/20 12:45 36.8 108 18 135/85 (102) 99 Room Air 09/14/20 12:30 97 18 132/74 (93) 97 Room Air 09/14/20 12:15 96 18 131/59 (83) 99 Room Air 09/14/20 12:00 85 18 143/70 (94) 97 Room Air 09/14/20 11:45 88 18 129/64 (85) 95 Room Air 09/14/20 11:30 102 18 146/80 (102) 99 Room Air 09/14/20 11:15 95 18 145/98 (114) 98 Room Air 09/14/20 11:00 98 18 135/84 (101) 97 Room Air 09/14/20 10:45 83 18 162/86 (111) 97 Room Air 09/14/20 10:30 93 18 134/70 (91) 98 Room Air 09/14/20 10:15 100 18 126/71 (89) 97 Room Air 09/14/20 10:00 97 18 130/71 (90) 95 Room Air 09/14/20 09:45 101 18 124/68 (86) 97 Room Air 09/14/20 09:30 97 18 140/85 (103) 99 Room Air 09/14/20 09:15 95 18 130/70 (90) 99 Room Air 09/14/20 09:00 93 18 135/69 (91) 97 Room Air 09/14/20 08:45 94 18 131/73 (92) 99 Room Air I & O 09/15/20 07:00 Intake Total 1610 ml Balance 1610 ml Labs Laboratory Tests 09/15/20 06:05: White Blood Count 13.1H, Red Blood Count 4.00, Hemoglobin 11.2L, Hematocrit 34L, Mean Corpuscular Volume 86, Mean Corpuscular Hemoglobin 28, Mean Corpuscular Hemoglobin Concent 33, Red Cell Distribution Width 16.9H, Platelet Count 281, Mean Platelet Volume 10.8, Immature Granulocyte % (Auto) 1, Neutrophils (%) (Auto) 73, Lymphocytes (%) (Auto) 18, Monocytes (%) (Auto) 7, Eosinophils (%) (Auto) 1, Basophils (%) (Auto) 0, Neutrophils # (Auto) 9.6H, Lymphocytes # (Auto) 2.4, Monocytes # (Auto) 0.9, Eosinophils # (Auto) 0.1, Basophils # (Auto) 0.0, Immature Granulocyte # (Auto) 0.1 Microbiology 09/13/20 Urine Culture - Final, Complete >=3 Gram Positive Isolates FLORENTIN CLINTON DO Sep 15, 2020 08:35
[2020-09-15] MEDS ORDERED: ACET-93 PO (08:44)
[2020-09-15] MEDS ORDERED: DOCU100C37 PO (08:44)
[2020-09-15] MEDS ORDERED: IBUP-844 PO (08:44)
[2020-09-15] MEDS ORDERED: OXC5T PO (08:44)
[2020-09-15] MEDS: DOCUSATE SODIUM 100 MG (COLACE) CAP PO SCH (08:44)
[2020-09-15] MEDS ORDERED: Benzocaine/Menthol TP (08:44)
--- NOTE | 2020-09-15 08:46 | Discharge Inst-Women's Service ---
Discharge Inst-Women's Serv Depart Medication/Instructions New, Converted or Re-Newed RX: RX on Chart Final Diagnosis gestational hypertension hypothyroidism vaginal delivery Problems Reviewed?: Yes Consults/Follow Up Additional Follow Up: Yes (2 weeks for BP check) Activity Activity: Activity as Tolerated Driving Instructions: You May Drive NO SMOKING: NO SMOKING Nothing Inside Vagina: No Douching, No [place], No Tampons FLORENTIN CLINTON DO Sep 15, 2020 08:46
--- NOTE | 2020-09-15 08:47 | NUR ---
initial shift assessment completed, see interventions for further.
[2020-09-15] MEDS ORDERED: FERROUS SULF 325 MG (IRON) TAB PO SCH (09:00)
--- NOTE | 2020-09-15 09:30 | NUR ---
pt up to shower.
[2020-09-15 09:52] VITALS: BP 137/83
--- NOTE | 2020-09-15 14:32 | Anesthesia-Regional Post-Op ---
Regional Patient Condition Mental Status: Alert, Oriented x3 Circulation: Same as Pre-Op Headache: Absent Sensation: Full Recovery Motor Block: Absent Post Op Complications Complications None Follow Up Care/Instructions Patient Instructions None needed. Anesthesia/Patient Condition Patient is doing well, no complaints, stable vital signs, no apparent adverse anesthesia problems. No complications reported per nursing. D/C home per [facility] Criteria: Yes YASIR VUONG CRNA Sep 15, 2020 14:31
[2020-09-15 18:05] VITALS: BP 160/74
--- NOTE | 2020-09-15 18:05 | NUR ---
dismissal instructions given, verbalizes understanding. reviewed follow up appointments and Rx's. signature page signed, placed on chart.,
--- NOTE | 2020-09-15 18:35 | NUR ---
pt ambulated to private vehicle with this RN, and @ side. secured in rear facing car seat. pt stable with no sx's of distress noted.
== END 2020-09-15 18:35 | disposition home or self-care (01) | DRG 807 ==
LOC: LDRP 20:08
PROVIDERS: ADMIT Obstetrics & Gynecology; ATTEND Obstetrics & Gynecology
PROC: 10E0XZZ Delivery of Products of Conception, External Approach (ICD-10-PCS; principal; 2020-09-14)
PROC: 0HQ9XZZ Repair Perineum Skin, External Approach (ICD-10-PCS; 2020-09-14)
DX: O13.4 Gestational [pregnancy-induced] hypertension without significant proteinuria, complicating childbirth (principal); Z37.0 Single live birth; Z3A.37 37 weeks gestation of pregnancy; O70.0 First degree perineal laceration during delivery; O99.284 Endocrine, nutritional and metabolic diseases complicating childbirth; E03.9 Hypothyroidism, unspecified; Z20.822 Contact with and (suspected) exposure to COVID-19
CPT/HCPCS: 36415; 80053; 81000; 82570; 84156; 85025; 86850; 86900; 86901; 87088; 87635

== ENCOUNTER 2022-06-13 14:52 | Emergency (ER) | payer BC ==
[~2022-06-13] VITALS: Ht 162.6 cm; Wt 116.0 kg
[~2022-06-13 14:52] MED LIST changes: +ACET-93 PO; +OXC5T PO
--- NOTE | 2022-06-13 15:21 | ED Cough/URI ---
General Chief Complaint: Respiratory Problems Stated Complaint: LIGHTHEADED|DIFFICULTY BREATHING Nursing Triage Note: PT AMB TO ED BY POV WITH C/O SOB. PT REPORTS COUGH X3 WEEKS. SOB INCRASED TODAY, REPORTS THAT SHE HAS BEEN DISORIENTED OVER THE LAST HOUR. REPORTS CHEST WALL PAIN WITH TAKING A DEEP BREATHE. History of Present Illness Date Seen by Provider: Jun 13, 2022 Time Seen by Provider: 15:17 Initial Comments Patient presents to the emergency department for continuos shortness of breath and cough for the past three weeks. Has been tested for COVID twice recently and negative. Has had two CXRs along with being on antibiotics and steroids. States that she has continued to get worse despite all of the medications and treatments. Timing/Duration: week Severity/Quality: moderate Associated Symptoms: cough, fever/chills, shortness of breath Allergies and Home Medications Allergies Coded Allergies: minocycline (Verified Allergy, Unknown, 06/22/18) Patient Home Medication List Home Medication List Reviewed: Yes Acetaminophen (Acetaminophen) 500 Mg Tablet, 1,000 MG PO Q8HR Prescribed by: FLORENTIN CLINTON on 09/15/20 0844 Benzonatate (Benzonatate) 200 Mg Capsule, 200 MG PO TID PRN for COUGH Prescribed by: Kathryn Parker on 06/13/22 1625 Docusate Sodium (Docusate Sodium) 100 Mg Capsule, 100 MG PO BID Prescribed by: FLORENTIN CLINTON on 09/15/20 0844 Ferrous Sulfate (Ferrous Sulfate) 325 Mg Tablet, 325 MG PO DAILY Prescribed by: FLORENTIN CLINTON on 06/25/18 0833 Ibuprofen (Ibu) 600 Mg Tablet, 600 MG PO Q6H Prescribed by: FLORENTIN CLINTON on 09/15/20 0844 Levothyroxine Sodium (Synthroid) 75 Mcg Tablet, MCG PO DAILY, (Reported) Entered as Reported by: CARSON EMANUEL on 06/17/18 1440 Oxycodone Hcl (Oxyir Tablet) 5 Mg Tab, 5 MG PO Q4HR PRN for PAIN-SEVERE (8-10) Prescribed by: FLORENTIN CLINTON on 09/15/20 0844 Pnv with Ca,No.72/Iron/FA (Pnv Plus Multivit Tab) 1 Ea Tab, 1 EA PO DAILY@0700 Prescribed by: FLORENTIN CLINTON on 09/11/14 0943 Prednisone (Prednisone) 20 Mg Tab, 60 MG PO DAILY Prescribed by: Kathryn Parker on 06/13/22 1625 [Benzocaine/Menthol] 56 ML AEROSOL, 56 ML TP UD PRN for PAIN- SEE INSTRUCTIONS Prescribed by: FLORENTIN CLINTON on 09/15/20 0844 Review of Systems Review of Systems Constitutional: No chills, No dizziness, No fever Respiratory: cough, phlegm, short of breath Cardiovascular: No chest pain, No palpitations Gastrointestinal: No diarrhea, No nausea, No vomiting Musculoskeletal: no symptoms reported Skin: no symptoms reported All Other Systems Reviewed Negative Unless Noted: Yes Past Eqgvyjr-Kjndrz-Xdopzw Hx Patient Social History Tobacco Use?: No Use of E-Cig and/or Vaping dev: No Substance use?: No Alcohol Use?: No Pt feels they are or have been: No Immunizations Up To Date Tetanus Booster (TDap): Unknown PED Vaccines UTD: No Influenza Vaccine Up-to-Date: No; Not Current First/Initial COVID19 Vaccinat: 2020 Second COVID19 Vaccination Prakash: 2020 Third COVID19 Vaccination Date: 2021 Seasonal Allergies Seasonal Allergies: Yes Past Medical History Surgery/Hospitalization HX: HASHIMOTOS, PCOS, ENDOMETRIOSIS TONSIL, APPE Surgeries: Yes Respiratory: No Cardiac: No Neurological: No Last Menstrual Period: Jun 01, 2022 Reproductive Disorders: Yes Female Reproductive Disorders: Endometriosis, Polycystic Ovarian Dis Sexually Transmitted Disease: No HIV/AIDS: No Genitourinary: No Gastrointestinal: No Musculoskeletal: No Endocrine: Yes HEENT: No Cancer: No Psychosocial: No Integumentary: No Blood Disorders: No Adverse Reaction/Blood Tranf: No Family Medical History Reviewed Nursing Family Hx Congenital hypothroidism nephew FH: breast cancer maternal gm, FH: ovarian cancer maternal gm, Physical Exam Vital Signs - First Documented 06/13/22 14:57 Temp 36.4 Pulse 96 Resp 22 B/P (MAP) 146/105 (119) Pulse Ox 100 O2 Delivery Room Air Capillary Refill : Less Than 3 Seconds Height: 5'4.00" Weight: 281lbs. 0.0oz. [id number]; 43.00 BMI Method: General Appearance: WD/WN HEENT: PERRL/EOMI, normal ENT inspection, TMs normal, pharynx normal Neck: non-tender, full range of motion, supple, normal inspection Respiratory: chest non-tender, lungs clear, normal breath sounds, no respiratory distress, no accessory muscle use Cardiovascular: regular rate, rhythm, no edema Neurologic/Psychiatric: alert, normal mood/affect, oriented x 3 Skin: normal color, warm/dry Progress/Results/Core Measures Suspected Sepsis SIRS Temperature: Pulse: 96 Respiratory Rate: 22 Blood Pressure 146 /105 Mean: 119 Results/Orders My Orders Orders - KATHRYN PARKER APRN Prednisone Tablet (Deltasone Tablet) (06/13/22 15:30) Albuterol/Ipra Inhalation Soln (Duoneb I (06/13/22 15:30) Svn Small Volume Nebulizer (06/13/22 15:21) Medications Given in ED Current Medications Medications Dose Ordered Sig/Martha Route Start Time Stop Time Status Last Admin Dose Admin Albuterol/ Ipratropium 3 ml ONCE ONCE INH 06/13/22 15:30 06/13/22 15:31 DC 06/13/22 15:34 3 ML Prednisone 60 mg ONCE ONCE PO 06/13/22 15:30 06/13/22 15:31 DC 06/13/22 15:34 60 MG Vital Signs/I&O 06/13/22 06/13/22 14:57 16:39 Temp 36.4 Pulse 96 93 Resp 22 16 B/P (MAP) 146/105 (119) 129/90 Pulse Ox 100 94 O2 Delivery Room Air Room Air Capillary Refill : Less Than 3 Seconds Blood Pressure Mean: 119 Progress Note : Progress Note Patient reports that she is feeling better at this time. Still has scattered faint wheezes noted expiratory. Home treatments discussed with patient. Her PCP called out Prednisone 20mg, Proair and Azithromycin. Instructed that if her Prednisone is not dosed at 60mg daily then start the prescription that I am sending out instead of the one the PCP wrote. Additional home treatments and medications discussed with patient along with reasons to return to the ER. Both patient and verbalized understanding. Departure Impression Primary Impression: Bronchitis Disposition: 01 HOME, SELF-CARE Condition: Stable Departure-Patient Inst. Decision time for Depature: 16:22 Referrals: PARK TONEY DO (PCP/Family) Primary Care Physician Patient Instructions: Acute Bronchitis Add. Discharge Instructions: 1. Home and rest. 2. Push fluids. 3. Continue medications as previously prescribed. 4. Follow up with PCP as needed. 5. Start Prednisone 60mg daily starting tomorrow. Try and take this medication as early in the day as possible and with food to prevent stomach upset. 6. Benzonatate as directed as needed. 7. May continue over the counter medications as directed per package instructions. 8. Return here if worse or concerns. All discharge instructions reviewed with patient and/or family. Voiced understanding. Scripts Benzonatate (Benzonatate) 200 Mg Capsule 200 MG PO TID PRN for COUGH, #20 CAP Prov: KATHRYN PARKER APRN 06/13/22 Prednisone (Prednisone) 20 Mg Tab 60 MG PO DAILY for 5 Days, #15 TAB Prov: KATHRYN PARKER APRN 06/13/22 KATHRYN PARKER APRN Jun 13, 2022 15:21
[2022-06-13] MEDS ORDERED: predniSONE 20 MG TAB PO ONE (15:30)
[2022-06-13] MEDS ORDERED: RT-ALBUTEROL/IPRATROPIUM 3 ML (DUONEB) VIAL INH ONE (15:30)
[2022-06-13] MEDS ORDERED: PRD20T PO (16:25)
[2022-06-13] MEDS ORDERED: BENZ200C51 PO (16:25)
[2022-06-13 16:39] VITALS: BP 129/90
== END 2022-06-13 16:39 | disposition home or self-care (01) ==
LOC: EDUNIT# 14:52 → ER 14:54
DX: J40 Bronchitis, not specified as acute or chronic (principal); Z88.1 Allergy status to other antibiotic agents
CPT/HCPCS: 94640

== ENCOUNTER → 2022-10-09 | Outpatient (CLI) | payer BC ==
[~2022-10-09] MED LIST changes: +BENZ200C51 PO; +PRD20T PO
--- NOTE | 2022-10-09 10:46 | Diagnostic Imaging Report ---
PROCEDURE: US Thyroid. TECHNIQUE: Multiple real-time grayscale images were obtained of the thyroid in various projections. INDICATION: Thyroid mass. FINDINGS: The right lobe is 5.1 x 2.2 x 1.5 cm. Its echotexture is diffusely heterogeneous. At its mid pole, it contains a well-defined nodule, isoechoic to slightly hyperechoic, solid and vascularized without calcifications, measuring a maximal dimension 1.9 cm. The left thyroid lobe is 4.9 x 1.3 x 1.4 cm. Its echotexture is diffusely heterogeneous but had no discrete solid or cystic mass. The isthmus is at 4 mm, nonfocal. IMPRESSION: Solid isoechoic to slightly hyperechoic 1.9 cm right lobe thyroid mass is a TI-RADS 3 lesion, and given its size, it should be followed in one year, three years, and five years from today for stability. No other focal mass. Dictated by: Dictated on workstation # [id number]
== END ==
LOC: RAD 07:35
PROVIDERS: ATTEND Family Medicine
DX: E04.1 Nontoxic single thyroid nodule (principal)
CPT/HCPCS: 76536